=== PATIENT | female | born 1960 | race Caucasian/White ===

== ENCOUNTER 2017-10-02 07:35 | Day surgery (SDC) | payer OTHER ==
[2017-09-26 10:18] VITALS: BMI 32.3
[2017-10-02] MEDS ORDERED: DEXAMETHASONE SOD PHOSPHATE/PF 10 MG/ML SDV ONE (08:58)
[2017-10-02] MEDS ORDERED: MIDAZOLAM HCL 2 MG/2 ML SINGLE DOSE VIAL ONE (08:59)
[2017-10-02] MEDS ORDERED: ROPIVACAINE HCL 0.5% 30ML VIAL ONE (08:59)
[2017-10-02] MEDS ORDERED: BUPIVACAINE HCL/PF 2.5 MG/ML - 30 ML VIAL IJ ONE (09:05)
[2017-10-02] MEDS ORDERED: PROPOFOL 20 ML ONE ×3 (09:28)
[2017-10-02] MEDS ORDERED: DEXAMETHASONE SOD PHOSPHATE 4 MG/1 ML VIAL ONE (09:30)
[2017-10-02] MEDS ORDERED: KETOROLAC TROMETHAMINE 30 MG/1 ML VIAL ONE (09:30)
[2017-10-02] MEDS ORDERED: ceFAZolin SODIUM 1 GM VIAL ONE (09:30)
[2017-10-02] MEDS ORDERED: ONDANSETRON 4 MG/2 ML VIAL ONE (09:30)
[2017-10-02] MEDS ORDERED: oxyCODONE HCL 5 MG TABLET PO PRN ×2 (10:29)
[2017-10-02] MEDS ORDERED: ONDANSETRON 4 MG/2 ML VIAL IVPUSH PRN (10:29)
[2017-10-02] MEDS ORDERED: PROMETHAZINE HCL 25 MG/1 ML VIAL IVPUSH PRN (10:29)
[2017-10-02 10:53] VITALS: TEMP 95
[2017-10-02 11:17] VITALS: PULSE 80
[2017-10-02 12:11] VITALS: BP 108/76
--- NOTE | 2017-10-02 12:35 | OP ---
DATE OF OPERATION: 10/02/2017 PREOPERATIVE DIAGNOSIS: Left basal joint arthritis. POSTOPERATIVE DIAGNOSIS: Left basal joint arthritis. OPERATIVE PROCEDURE: 1. Left basal joint arthroplasty. 2. Left carpometacarpal joint tendon transfer. SURGEON: Dada Ochoa MD SHINGLES ROOFER HELPER: EL Lopez ANESTHESIA: Regional. COMPLICATIONS: None. ESTIMATED BLOOD LOSS: Minimal. INDICATIONS FOR PROCEDURE: The patient is a 57-year-old female with the above finding indicated for operative treatment. The risks, benefits, and alternatives were discussed with the patient at length. Proper informed consent was obtained. DESCRIPTION OF PROCEDURE: After proper identification of the patient and the correct operative site, the patient was brought to the operating room and placed supine on the operating table. Prominences were well padded. Sedation was given by the anesthesiologist. Regional anesthesia was also given. Left upper extremity was prepped and draped in the usual sterile fashion. Intravenous antibiotics were given. Time-out procedure was performed. Esmarch bandage used to exsanguinate the left upper extremity. Tourniquet inflated to 250 mmHg. Curvilinear Bynum incision was made over the basal joint. Incision was taken sharply through the skin with blunt and sharp dissection through subcutaneous tissues taking care to protect neurovascular structures. Thenar muscles were elevated off the dorsal radial aspect of the carpometacarpal joint. Capsulotomy was performed longitudinally. Severe arthrosis of the carpometacarpal joint was noted with significant effusion. The trapezium was then resected and removed from the joint. Suspensionplasty was then performed by using an Arthrex SwiveLock anchor inserted into the base of the 2nd metacarpal and the base of the thumb metacarpal with a FiberTape suture. This was done with appropriate tensioning and positioning and full range of motion was achieved after the suspensionplasty was performed. Capsule was then repaired, and 1st dorsal compartment tendon was transferred to the dorsal capsule for increased stability. Wound was repaired with 4-0 Vicryl and 4-0 Monocryl. Sterile dressings and splint were placed. Patient was reversed from anesthesia and brought to the recovery room in stable condition. She tolerated the procedure well. DADA OCHOA M.D. [id number]
--- NOTE | 2017-10-02 12:38 | OP ---
DATE OF OPERATION: 10/02/2017 ADDENDUM Constantine Borrego, the physicians teachers' assistant, was integral throughout the procedure as an teachers' assistant, and this procedure could not have been performed without a skilled operative teachers' assistant. ANGIE MUIR M.D. CORIN/[id number]
== END 2017-10-02 12:11 | disposition home or self-care (01) ==
LOC: FASU 07:35
PROVIDERS: ATTEND Orthopaedic Surgery Hand Surgery
PROC: 0RUT07Z Supplement Left Carpometacarpal Joint with Autologous Tissue Substitute, Open Approach (ICD-10-PCS; principal; 2017-10-02 09:46)
DX: M18.12 Unilateral primary osteoarthritis of first carpometacarpal joint, left hand (principal)
CPT/HCPCS: 82962

== ENCOUNTER 2019-04-09 09:55 | Inpatient (IN) | payer OTHER ==
[2019-04-09 10:38] LABS: BASO % 1.1 % (0-2.0); EOS % 1.5 % (0-4.5); HEMOGLOBIN 9.8 GM/dL (10.7-15.3); LYMPH % 42.4 % (8-40); MCH 20.1 pg (25.7-33.7); MCHC 30.5 g/dl (32.0-36.0); MEAN CELL VOLUME 65.8 fl (80-96); MONO % 5.7 % (3.8-10.2); NEUT % 49.3 % (42.8-82.8); PLATELET COUNT 314 K/MM3 (134-434); RBC 4.86 M/mm3 (3.60-5.2); RDW 20.5 % (11.6-15.6); WHITE BLOOD COUNT 5.9 K/mm3 (4.0-10.0)
--- NOTE | 2019-04-09 10:45 | PDOC ---
History of Present Illness - General Chief Complaint: Injury Stated Complaint: FALL Time Seen by Provider: 04/09/19 10:30 - History of Present Illness Initial Comments: 04/09/19 10:46 58 yo F PMH dizziness (for many years, seeing neurologist Dr. Funk, unclear etiology), HTN, non obstructive CAD, remote h/o PE, GERD, chronic constipation, diverticulitis, presenting after fall. Reports that she was opening the door to let a friend into the house when she had "tunnel over my eyesight" dizziness, fell, hit her head, LOC for less than minute. Identical to previous episodes of this dizziness. Reportedly neurologist has trialed her on zonisamide for several months, patient states that it has not helped. Complains of very mild dizziness, worsened by tracking finger from side to side, ongoing constipation, and mild LLQ pain unchanged from her normal. Specifically denies CP, SOB, diarrhea, fevers/chills, OVIEDO, N/V. Past History - Past Medical History Allergies/Adverse Reactions: Allergies Allergy/AdvReac Type Severity Reaction Status Date / Time levofloxacin [From Levaquin] Allergy Unknown Verified 03/15/18 10:06 seasonal Allergy Uncoded 03/15/18 10:06 Home Medications: Ambulatory Orders Atorvastatin Ca [Lipitor] 20 mg PO HS 06/15/15 Cholecalciferol (Vitamin D3) [Vitamin D3] 50,000 unit PO SA 06/15/15 Cyclobenzaprine HCl [Amrix] 10 mg PO DAILY 06/15/15 Duloxetine HCl 60 mg PO DAILY 06/15/15 Methimazole [Northyx] 5 mg PO SUWE 06/15/15 Mirabegron [Myrbetriq] 50 mg PO DAILY 06/15/15 Oxycodone HCl [Oxycontin] 30 mg PO BID 06/15/15 Pregabalin [Lyrica -] 225 mg PO BID 04/01/16 Cetirizine HCl [Zyrtec -] 10 mg PO DAILY 09/26/17 Dapagliflozin Propanediol [Farxiga] 5 mg PO DAILY 09/26/17 Losartan Potassium [Cozaar -] 25 mg PO DAILY 09/26/17 Metoprolol Succinate [Toprol XL -] 25 mg PO DAILY 09/26/17 Omeprazole 40 mg PO BID 09/26/17 metFORMIN HCL [Glucophage -] 1,000 mg PO HS 09/26/17 Nitroglycerin 0.4 mg SL ASDIR 03/15/18 clonazePAM [Klonopin -] 0.5 mg PO HS 03/15/18 Ferrous Sulfate [Feosol] 325 mg PO DAILY #30 tablet 03/18/18 Anemia: Yes (2011 r/t knee replacement) Asthma: No Cancer: No Cardiac Disorders: Yes (occasional palpitations) CVA: No COPD: No (SOB on excertion-pt states due to weight) CHF: No Dementia: No Diabetes: Yes GI Disorders: Yes (Esophageal surgery x2??? 09/17/17) Disorders: No HTN: Yes Hypercholesterolemia: Yes Liver Disease: No Seizures: No Thyroid Disease: Yes (HYPER) - Surgical History Abdominal Surgery: No Appendectomy: No Cardiac Surgery: No Cholecystectomy: No Lung Surgery: No Neurologic Surgery: No Orthopedic Surgery: Yes (Bilateral knee replacement) - Immunization History Immunization Up to Date: Yes - Psycho Social/Smoking Cessation Hx Smoking Status: No Smoking History: Never smoked Have you smoked in the past 12 months: No Number of Cigarettes Smoked Daily: 0 Information on smoking cessation initiated: No Hx Alcohol Use: No Drug/Substance Use Hx: No Substance Use Type: None Hx Substance Use Treatment: No Review of Systems - Review of Systems Able to Perform ROS?: Yes Constitutional: No: Chills, Fever HEENTM: No: Recent change in vision, Double Vision, Hearing Loss, Difficulty Swallowing Respiratory: No: Cough, Shortness of Breath Cardiac (ROS): No: Chest Pain, Edema, Irregular Heart Rate ABD/GI: No: Constipated, Diarrhea, Nausea, Vomiting Musculoskeletal: No: Back Pain, Muscle Weakness Neurological: No: Headache, Numbness, Tingling, Weakness *Physical Exam - Vital Signs Last Vital Signs Temp Pulse Resp BP Pulse Ox 98.5 F 82 18 127/84 100 04/09/19 10:08 04/09/19 10:08 04/09/19 10:08 04/09/19 10:08 04/09/19 10:08 - Physical Exam Comments: 04/09/19 10:51 Gen: well-developed, well-nourished, NAD Neuro: AAOX4, CN II-XII intact, FTN intact, EOMI, PERRLA, 5/5 strength, SILT, mild tremor HEENT: atraumatic, normocephalic, dry mucous membranes Neck: trachea midline, supple CV: regular rate, regular rhythm, no murmurs, rubs, or gallops Pulm: CTA b/l, no wheezing Abd: soft, non-distended, non-tender MSK: full ROM, intact pulses Extr: no edema, no deformities Skin: warm, dry Heart Score/ECG Review - History History: Moderately suspicious - Electrocardiogram EKG: Normal - Age Age: 45-65 - Risk Factors Risk Factors Heart Score: Yes Hx Hypercholesterolemia, Yes Hx Hypertension, Yes Hx Diabetes Based on the list above the patient has:: >/=3 risk factors or Hx atherosclerotic disease - Troponin Troponin: </= normal limit - Score Heart Score - Total: 4 ED Treatment Course - LABORATORY CBC & Chemistry Diagram: 04/09/19 10:19 04/09/19 10:19 Medical Decision Making - Medical Decision Making 04/09/19 10:58 Concern with head trauma and positive LOC, cardiac v neuro etiology. Furthermore , has never before had syncope like she did today. - CBC, CMP - EKG, trop - UA/UC - CT head non con - ctm 04/09/19 11:01 Hgb 9.8, CXR no acute pathology. 04/09/19 11:56 EKG normal sinus, no ischemic changes. 04/09/19 12:45 CT head no acute pathology. 04/09/19 13:45 CT neck no acute pathology. Will likely admit [facility] for first time syncope. Discharge - Discharge Information Problems reviewed: Yes Clinical Impression/Diagnosis: Syncope - Follow up/Referral Referrals: Seema Liao MD [Primary Care Provider] - - Patient Discharge Instructions - Post Discharge Activity
[2019-04-09] MEDS ORDERED: MECLIZINE HCL 25 MG TABLET (FP) PO ONE (11:04)
[2019-04-09 11:06] LABS: ALBUMIN 4.2 g/dl (3.4-5.0); BILIRUBIN,TOTAL 0.3 mg/dL (0.2-1); CALCIUM 9.3 mg/dL (8.5-10.1); CREATININE 0.7 mg/dL (0.55-1.3); POTASSIUM 4.3 mmol/L (3.5-5.1); TOT PROT 7.3 g/dl (6.4-8.2)
[2019-04-09 11:14] LABS: PH,URINE 5.5 (5.0-8.0); URINE APPEARANCE CLEAR; URINE BILIRUBIN NEGATIVE (NEGATIVE); URINE COLOR YELLOW; URINE GLUCOSE (UA) 3+ (NEGATIVE); URINE KETONE NEGATIVE (NEGATIVE); URINE LEUK ESTERASE NEGATIVE (NEGATIVE); URINE NITRITE NEGATIVE (NEGATIVE); URINE PROTEIN NEGATIVE (NEGATIVE); URINE UROBILINOGEN 0.2 mg/dL (0.2-1.0)
[2019-04-09] MEDS ORDERED: MECLIZINE HCL 25 MG TABLET (FP) ONE (11:20)
--- NOTE | 2019-04-09 12:05 | EKG ---
Test Reason : Blood Pressure : / mmHG Vent. Rate : 078 BPM Atrial Rate : 078 BPM P-R Int : 156 ms QRS Dur : 084 ms QT Int : 372 ms P-R-T Axes : 034 020 034 degrees QTc Int : 424 ms POOR DATA QUALITY, INTERPRETATION MAY BE ADVERSELY AFFECTED NORMAL SINUS RHYTHM NORMAL ECG WHEN COMPARED WITH ECG OF 15-MAR-2018 10:01, NO SIGNIFICANT CHANGE WAS FOUND Confirmed by JOSEE SALDIVAR, REI ([id number]) on 04/09/2019 12:04:26 PM Referred By: Confirmed By:REI TRIPP MD
[2019-04-09 12:16] LABS: ANISOCYTOSIS 1+; MACROCYTOSIS 0; PLATELET ESTIMATE NORMAL
--- NOTE | 2019-04-09 14:51 | PDOC ---
Documentation entered by Lc Hathaway SCRIBE, acting as scribe for Jaky House MD. Jaky House MD: This documentation has been prepared by the Rivas valentin Daniel, SCRIBE, under my direction and personally reviewed by me in its entirety. I confirm that the documentation accurately reflects all work, treatment, procedures, and medical decision making performed by me. Attending Attestation - Resident Resident Name: Dennis Quintanilla - ED Attending Attestation I have performed the following: I have examined & evaluated the patient, The case was reviewed & discussed with the resident, I agree w/resident's findings & plan, Exceptions are as noted - HPI HPI: 04/09/19 11:00 The patient is a 58 year old female with a past medical history of chronic dizziness, HTN, chronic constipation, PE, GERD, and diverticulitis here today for evaluation s/p fall. The patient reports that she was walking to her door when she felt sudden tunnel vision, palpitations, and lightheadedness followed by LOC for unknown period of time. She states that she fell, hit her head, and lost consciousness. Denies confusion afterwards, called 911. Denies injury from fall. At this time, she feels mildly lightheaded. Patient denies headache, focal weakness/numbness. Denies fever, chills. Denies chest pain, shortness of breath. Denies nausea, vomiting, diarrhea, abdominal pain. Denies LE edema, calf pain, recent travel or immobility. Allergies: levofloxacin PCP: Seema Liao Neurologist: Rena Funk - Physicial Exam PE: 04/09/19 11:00 GENERAL: Awake, alert, and fully oriented, in no acute distress HEAD: No signs of trauma EYES: PERRLA, EOMI, sclera anicteric, conjunctiva clear ENT: Oropharynx clear without exudates. Moist mucosa NECK: Normal ROM, supple, no lymphadenopathy, JVD, or masses BACK: No midline cervical, thoracic, lumbar ttp LUNGS: Breath sounds equal, clear to auscultation bilaterally. No wheezes, and no crackles HEART: Regular rate and rhythm, normal S1 and S2, no murmurs, rubs or gallops ABDOMEN: Soft, nontender, normoactive bowel sounds. No guarding, no rebound. No masses EXTREMITIES: Normal range of motion, no edema. No clubbing or cyanosis. No cords , erythema, or tenderness BACK: No midline spinal tenderness in cervical/thoracic/lumbar region NEUROLOGICAL: Normal speech, cranial nerves intact, negative pronator drift, 5/ 5 strength in all 4 extremities, normal sensation to light touch in all 4 extremities, normal cerebellar exam, normal gait, normal tone SKIN: Warm, Dry, normal turgor, no rashes or lesions noted. - Medical Decision Making 04/09/19 14:47 58-year-old female presents emergency department with a syncopal episode. Prodrome included lightheadedness, palpitations. Patient has no history of syncope. Exam within normal limits. Labs within normal limits. CT head negative. Cervical spine cleared by [place] C-spine rules. Concern for cardiac arrhythmia given lightheadedness and preceding palpitations. Plan for telemetry observation for further management. Heart Score/ECG Review #1 04/09/19 14:50 Twelve-lead EKG was performed and reviewed by me. Normal sinus rhythm, rate 78. Normal axis and intervals. No ST elevations or T wave inversions.
--- NOTE | 2019-04-09 14:51 | HP ---
Admitting History and Physical - Admission Chief Complaint: came in for syncopal episode History of Present Illness: The patient is a 58 year old female with a past medical history of chronic dizziness, HTN, DM,chronic constipation, PE, GERD, and diverticulitis here today for evaluation s/p fall. The patient reports that she was walking to her door when she felt sudden tunnel vision, palpitations, and lightheadedness followed by LOC for unknown period of time. She states that she fell, hit her head, and lost consciousness. Denies confusion afterwards, called 911. History Source: Patient, Family Member - Past Medical History Cardiovascular: Yes: CAD (non-obstructive), HTN, Hyperlipdemia, Other ( arrhythmia) Pulmonary: Yes: Pulmonary Embolus Gastrointestinal: Yes: GERD ...LMP: 02/08/11 Psych: Yes: Anxiety, Depression, Panic Endocrine: Yes: Diabetes Mellitus - Past Surgical History Past Surgical History: Yes: Hysterectomy, Joint Replacement (bilateral knees) - Smoking History Smoking history: Never smoked Have you smoked in the past 12 months: No Aproximately how many cigarettes per day: 0 - Alcohol/Substance Use Hx Alcohol Use: No History of Substance Use: reports: None - Social History ADL: Independent History of Recent Travel: No Home Medications - Allergies Allergies/Adverse Reactions: Allergies Allergy/AdvReac Type Severity Reaction Status Date / Time levofloxacin [From Levaquin] Allergy Unknown Verified 03/15/18 10:06 seasonal Allergy Uncoded 03/15/18 10:06 - Home Medications Home Medications: Ambulatory Orders Atorvastatin Ca [Lipitor] 20 mg PO HS 06/15/15 Cholecalciferol (Vitamin D3) [Vitamin D3] 50,000 unit PO SA 06/15/15 Cyclobenzaprine HCl [Amrix] 10 mg PO DAILY 06/15/15 Duloxetine HCl 60 mg PO DAILY 06/15/15 Methimazole [Northyx] 5 mg PO SUWE 06/15/15 Mirabegron [Myrbetriq] 50 mg PO DAILY 06/15/15 Oxycodone HCl [Oxycontin] 30 mg PO BID 06/15/15 Pregabalin [Lyrica -] 225 mg PO BID 04/01/16 Cetirizine HCl [Zyrtec -] 10 mg PO DAILY 09/26/17 Dapagliflozin Propanediol [Farxiga] 5 mg PO DAILY 09/26/17 Losartan Potassium [Cozaar -] 25 mg PO DAILY 09/26/17 Metoprolol Succinate [Toprol XL -] 25 mg PO DAILY 09/26/17 Omeprazole 40 mg PO BID 09/26/17 metFORMIN HCL [Glucophage -] 1,000 mg PO HS 09/26/17 Nitroglycerin 0.4 mg SL ASDIR 03/15/18 clonazePAM [Klonopin -] 0.5 mg PO HS 03/15/18 Ferrous Sulfate [Feosol] 325 mg PO DAILY #30 tablet 03/18/18 Review of Systems - Review of Systems Cardiovascular: reports: No Symptoms Respiratory: reports: No Symptoms Gastrointestinal: reports: No Symptoms Genitourinary: reports: No Symptoms Neurological: reports: Headache Physical Examination Vital Signs: Vital Signs Temperature 98.5 F 04/09/19 10:08 Pulse Rate 82 04/09/19 10:08 Respiratory Rate 18 04/09/19 10:08 Blood Pressure 127/84 04/09/19 10:08 O2 Sat by Pulse Oximetry (%) 100 04/09/19 10:08 Constitutional: Yes: Calm Neck: Yes: Trachea Midline Cardiovascular: Yes: Regular Rate and Rhythm, S1, S2 Respiratory: Yes: CTA Bilaterally Gastrointestinal: Yes: Normal Bowel Sounds, Soft Musculoskeletal: Yes: Other (right knee pain) Labs: CBC, BMP 04/09/19 10:19 04/09/19 10:19 Imaging - Results EKG: Report Reviewed (sinus rhythm) Problem List - Problems (1) Syncope Assessment/Plan: telemetry r/o arrthymia svts metoprolol echo cadiology eval carotid doppler Code(s): R55 - SYNCOPE AND COLLAPSE (2) Hyperlipidemia Assessment/Plan: atorvastatin Code(s): E78.5 - HYPERLIPIDEMIA, UNSPECIFIED Qualifiers: Hyperlipidemia type: unspecified Qualified Code(s): E78.5 - Hyperlipidemia , unspecified (3) Hyperthyroidism Assessment/Plan: methimazole tsh free t4 t3 Code(s): E05.90 - THYROTOXICOSIS, UNSP WITHOUT THYROTOXIC CRISIS OR STORM (4) Type 2 diabetes mellitus Assessment/Plan: sliding scale bgm achs hgba1c Code(s): E11.9 - TYPE 2 DIABETES MELLITUS WITHOUT COMPLICATIONS Qualifiers: Diabetes mellitus complication status: without complication Qualified Code( s): E11.9 - Type 2 diabetes mellitus without complications (5) Anemia Assessment/Plan: iron panel Code(s): D64.9 - ANEMIA, UNSPECIFIED Qualifiers: Anemia type: iron deficiency
[2019-04-09] MEDS ORDERED: MECLIZINE HCL 25 MG TABLET (FP) PO PRN (15:34)
[2019-04-09] MEDS ORDERED: clonazePAM 0.5 MG TABLET PO ONE (15:34)
[2019-04-09 16:45] VITALS: BMI 30.2
--- NOTE | 2019-04-09 17:07 | CON.CARD ---
Consult Consult Specialty:: cardiology Reason for Consultation:: ?syncope, palpitations - History of Present Illness Chief Complaint: Pt A&Ox3; no chest pain, dyspnea, or dizziness History of Present Illness: The patient is a 58 year old female (sb Wilde) with a past medical history of chronic dizziness, HTN, diastolic CHF, overweight, chronic constipation, PE, GERD, anxiety/depression (exacerbated by the of her a few months ago), anemia, hiatal hernia, and diverticulitis, here today for evaluation s/p fall. The patient reports that she was walking to answer a knock at her door this morning when she felt sudden tunnel vision, palpitations, and lightheadedness followed by LOC for unknown period of time. She states that she fell, hit her head, and lost consciousness. Denies confusion afterwards, called 911. Denies injury from fall. At this time, she feels mildly lightheaded. Patient denies headache, focal weakness/numbness. Denies fever, chills. Denies chest pain, shortness of breath. Denies nausea, vomiting, diarrhea, abdominal pain. Denies LE edema, calf pain, recent travel or immobility. Allergies: levofloxacin PCP: Seema Liao Web Weaver: Andria Neurologist: Rena Funk - History Source History Provided By: Patient, Family Member, Medical Record Limitations to Obtaining History: No Limitations - Past Medical History Cardio/Vascular: Yes: CAD (non-obstructive), HTN, Hyperlipdemia, Other ( arrhythmia) Pulmonary: Yes: Pulmonary Embolus Gastrointestinal: Yes: GERD Reproductive: Yes: Postmenopausal ...LMP: 02/08/11 ...: No Psych: Yes: Anxiety, Depression, Panic Endocrine: Yes: Diabetes Mellitus - Past Surgical History Past Surgical History: Yes: Hysterectomy, Joint Replacement (bilateral knees) - Alcohol/Substance Use Hx Alcohol Use: No History of Substance Use: reports: None - Smoking History Smoking history: Never smoked Have you smoked in the past 12 months: No Aproximately how many cigarettes per day: 0 - Social History ADL: Independent History of Recent Travel: No Home Medications - Allergies Allergies/Adverse Reactions: Allergies Allergy/AdvReac Type Severity Reaction Status Date / Time levofloxacin [From Levaquin] Allergy Unknown Verified 03/15/18 10:06 seasonal Allergy Uncoded 03/15/18 10:06 - Home Medications Home Medications: Ambulatory Orders Atorvastatin Ca [Lipitor] 20 mg PO HS 06/15/15 Cholecalciferol (Vitamin D3) [Vitamin D3] 50,000 unit PO SA 06/15/15 Cyclobenzaprine HCl [Amrix] 10 mg PO DAILY 06/15/15 Duloxetine HCl 60 mg PO DAILY 06/15/15 Methimazole [Northyx] 5 mg PO SUWE 06/15/15 Mirabegron [Myrbetriq] 50 mg PO DAILY 06/15/15 Oxycodone HCl [Oxycontin] 30 mg PO BID 06/15/15 Pregabalin [Lyrica -] 225 mg PO BID 04/01/16 Cetirizine HCl [Zyrtec -] 10 mg PO DAILY 09/26/17 Dapagliflozin Propanediol [Farxiga] 5 mg PO DAILY 09/26/17 Losartan Potassium [Cozaar -] 25 mg PO DAILY 09/26/17 Metoprolol Succinate [Toprol XL -] 25 mg PO DAILY 09/26/17 Omeprazole 40 mg PO BID 09/26/17 metFORMIN HCL [Glucophage -] 1,000 mg PO HS 09/26/17 Nitroglycerin 0.4 mg SL ASDIR 03/15/18 clonazePAM [Klonopin -] 0.5 mg PO HS 03/15/18 Ferrous Sulfate [Feosol] 325 mg PO DAILY #30 tablet 03/18/18 Family Medical History Family History: Denies Review of Systems - Review of Systems Constitutional: reports: Weakness Eyes: reports: No Symptoms HENT: reports: No Symptoms Neck: reports: No Symptoms Cardiovascular: reports: Chest Pain, Shortness of Breath Respiratory: reports: SOB Gastrointestinal: reports: Indigestion Genitourinary: reports: No Symptoms Breasts: reports: No Symptoms Reported Musculoskeletal: reports: Joint Pain (hit right knee when she fell), Muscle Weakness Integumentary: reports: No Symptoms Neurological: reports: No Symptoms Endocrine: reports: No Symptoms Hematology/Lymphatic: reports: No Symptoms Psychiatric: reports: Anxiety, Depression - Risk Factors Known Risk Factors: Yes: Age, Gender, Hypercholesterolemia, Hypertension, Physical Inactivity, Other (anxeity/depression) Vital Signs: Vital Signs Temperature 98.2 F 04/09/19 16:15 Pulse Rate 86 04/09/19 16:15 Respiratory Rate 18 04/09/19 16:15 Blood Pressure 121/75 04/09/19 16:15 O2 Sat by Pulse Oximetry (%) 100 04/09/19 15:00 Constitutional: Yes: Anxious Eyes: Yes: WNL HENT: Yes: WNL Neck: Yes: WNL Respiratory: Yes: WNL Gastrointestinal: Yes: Soft. No: Tenderness Renal/: No: Anuria Cardiovascular: Yes: WNL JVD: No Carotid Bruit: No PMI: Non-Displaced Heart Sounds: Yes: S1, S2 Musculoskeletal: Yes: Joint Stiffness, Muscle Weakness Extremities: Yes: WNL Edema: No Peripheral Pulses WNL: Yes Integumentary: Yes: WNL Neurological: Yes: Alert, Oriented, Weakness Psychiatric: Yes: Alert, Oriented, Other (anxiety/depression) - Other Data Labs, Other Data: CBC, BMP 04/09/19 10:19 04/09/19 10:19 Troponin, BNP 04/09/19 10: Troponin I < 0.02 Troponin, BNP 04/09/19 10:19 Troponin I < 0.02 Echo: Report Reviewed Ejection Fraction %: LVEF > or = 40 % Imaging - Results Chest X-ray: Image Reviewed EKG: Image Reviewed Other: Image Reviewed (telemetry: NSR; periods of sinus tachycardia) Problem List - Problems (1) Anxiety and depression Assessment/Plan: chronic; exacerbated by the of her earlier this year, wth resulting change in diet, decrease in exercise. Code(s): F41.9 - ANXIETY DISORDER, UNSPECIFIED; F32.9 - MAJOR DEPRESSIVE DISORDER, SINGLE EPISODE, UNSPECIFIED (2) Syncope Assessment/Plan: Avoid dehydration. Orthostatic vital signs. ECHO for LVEF, valve status. EKG: normal study. Stress MIBI 03/2018: no ischemia. TNI < 0.02 x 2. Carotid artery US: no significant stenosis. Addendum: Pt c/o chest pain today, and underwent treadmill stress test, which was markedly limited by exertional fatigue. For CT chest. Code(s): R55 - SYNCOPE AND COLLAPSE (3) Atypical chest pain Code(s): R07.89 - OTHER CHEST PAIN (4) Physical deconditioning Code(s): R53.81 - OTHER MALAISE
[2019-04-09] MEDS: INSULIN SLIDING SCALE (NOVOLOG) 1 VIAL SQ SCH ×2 (17:17→21:34)
--- NOTE | 2019-04-09 18:56 | CON.NEURO ---
Consult Consult Specialty:: NEUROLOGY-MARY JANE SALDIVAR - History of Present Illness History of Present Illness: The patient is a 58 year old female (sb Wilde) with a past medical history of chronic dizziness, HTN, diastolic CHF, overweight, chronic constipation, PE, GERD, anxiety/depression (exacerbated by the of her a few months ago), anemia, and diverticulitis, here today for evaluation s/p fall. The patient reports that she was walking to her door when she felt sudden tunnel vision, palpitations, and lightheadedness followed by LOC for unknown period of time. She states that she fell, hit her head, and lost consciousness. Denies confusion afterwards, called 911. Denies injury from fall. At this time, she feels mildly lightheaded.No confusion following event. Pt. being rx. by myself for depression/headaches. - Past Medical History Cardio/Vascular: Yes: CAD (non-obstructive), HTN, Hyperlipdemia, Other ( arrhythmia) Pulmonary: Yes: Pulmonary Embolus Gastrointestinal: Yes: GERD ...LMP: 02/08/11 ...: No Psych: Yes: Anxiety, Depression, Panic Endocrine: Yes: Diabetes Mellitus - Past Surgical History Past Surgical History: Yes: Hysterectomy, Joint Replacement (bilateral knees) - Alcohol/Substance Use Hx Alcohol Use: No History of Substance Use: reports: None - Smoking History Smoking history: Never smoked Have you smoked in the past 12 months: No Aproximately how many cigarettes per day: 0 - Social History ADL: Independent History of Recent Travel: No Home Medications - Allergies Allergies/Adverse Reactions: Allergies Allergy/AdvReac Type Severity Reaction Status Date / Time levofloxacin [From Levaquin] Allergy Unknown Verified 03/15/18 10:06 seasonal Allergy Uncoded 03/15/18 10:06 - Home Medications Home Medications: Ambulatory Orders Atorvastatin Ca [Lipitor] 20 mg PO HS 06/15/15 Cholecalciferol (Vitamin D3) [Vitamin D3] 50,000 unit PO SA 06/15/15 Cyclobenzaprine HCl [Amrix] 10 mg PO DAILY 06/15/15 Duloxetine HCl 60 mg PO DAILY 06/15/15 Methimazole [Northyx] 5 mg PO SUWE 06/15/15 Mirabegron [Myrbetriq] 50 mg PO DAILY 06/15/15 Oxycodone HCl [Oxycontin] 30 mg PO BID 06/15/15 Pregabalin [Lyrica -] 225 mg PO BID 04/01/16 Cetirizine HCl [Zyrtec -] 10 mg PO DAILY 09/26/17 Dapagliflozin Propanediol [Farxiga] 5 mg PO DAILY 09/26/17 Losartan Potassium [Cozaar -] 25 mg PO DAILY 09/26/17 Metoprolol Succinate [Toprol XL -] 25 mg PO DAILY 09/26/17 Omeprazole 40 mg PO BID 09/26/17 metFORMIN HCL [Glucophage -] 1,000 mg PO HS 09/26/17 Nitroglycerin 0.4 mg SL ASDIR 03/15/18 clonazePAM [Klonopin -] 0.5 mg PO HS 03/15/18 Ferrous Sulfate [Feosol] 325 mg PO DAILY #30 tablet 03/18/18 Physical Exam-Neuro Vital Signs: Vital Signs Temperature 98.0 F 04/09/19 18:00 Pulse Rate 82 04/09/19 18:00 Respiratory Rate 18 04/09/19 18:00 Blood Pressure 119/70 04/09/19 18:00 O2 Sat by Pulse Oximetry (%) 100 04/09/19 15:00 Labs: CBC, BMP 04/09/19 10:19 04/09/19 10:19 - Neuro Exam Level Of Consciousness: Yes: Alert, Oriented to Person, Oriented to Place, Oriented to Time Eyes: Yes: CORAZON Dominant Hand: Left Mini Mental Exam: Intact DTR's: 1+ Left Achilles, 1+ Right Achilles, 2+ Left Bicep, 2+ Right Bicep, 2+ Left Tricep, 2+ Right Tricep, 2+ Left Brachioradialis, 2+ Right Brachioradialis Motor Strength: 5/5: Left Arm, Right Arm, Left Leg, Right Leg Imaging - Results Cat Scan: Report Reviewed (No acute ischemic event) Assessment/Plan Pt. with syncope of cardiovascular origin, management as per cardiology,does not appear to be a neurologic event.Would cont.Duloxetine/Klonopin. Please call if needed. Thank you, Briana Funk MD
[2019-04-09] MEDS ORDERED: PREGABALIN 100 MG CAPSULE ONE (21:08)
[2019-04-09] MEDS ORDERED: PREGABALIN 25 MG CAPSULE ONE (21:08)
[2019-04-09] MEDS: oxyCODONE HCL 10 MG SUSTAINED ACTING TABLET PO SCH (21:35)
[2019-04-09] MEDS: clonazePAM 0.5 MG TABLET PO SCH (21:37)
[2019-04-09] MEDS: ATORVASTATIN CA 20 MG TABLET (FP) PO SCH (21:37)
[2019-04-09] MEDS: PREGABALIN PO SCH (21:37)
[2019-04-09] MEDS ORDERED: PREGABALIN 100 MG CAPSULE PO SCH (22:00)
[2019-04-10] MEDS: INSULIN SLIDING SCALE (NOVOLOG) 1 VIAL SQ SCH ×4 (06:13→21:35)
[2019-04-10 08:13] LABS: HEMATOCRIT 28.8 % (32.4-45.2); HEMOGLOBIN 9.4 GM/dL (10.7-15.3); MCH 21.6 pg (25.7-33.7); MCHC 32.7 g/dl (32.0-36.0); MEAN CELL VOLUME 66.2 fl (80-96); PLATELET COUNT 273 K/MM3 (134-434); RBC 4.35 M/mm3 (3.60-5.2); RDW 20.1 % (11.6-15.6); WHITE BLOOD COUNT 5.7 K/mm3 (4.0-10.0)
[2019-04-10 08:50] LABS: ALBUMIN 3.8 g/dl (3.4-5.0); ALK PHOS 83 U/L (45-117); ANION GAP 6 MMOL/L (8-16); BILIRUBIN,TOTAL 0.4 mg/dL (0.2-1); BLOOD UREA NITROGEN 7.3 mg/dL (7-18); CALCIUM 9.1 mg/dL (8.5-10.1); CHLORIDE 107 mmol/L (98-107); CHOLESTEROL 181 mg/dL (50-200); CO2 26 mmol/L (21-32); CREATININE 0.6 mg/dL (0.55-1.3); GLUCOSE,RANDOM 106 mg/dL (74-106); HDL CHOLESTEROL 55 mg/dL (40-60); LDL CHOLESTEROL (ONLY SJRH) 105 mg/dL (5-100); N-TERMINAL BNP 12.4 pg/ml (5-125); PHOSPHOROUS 4.2 mg/dL (2.5-4.9); POTASSIUM 4.2 mmol/L (3.5-5.1); SGOT/AST 11 U/L (15-37); SGPT/ALT 19 U/L (13-61); SODIUM 140 mmol/L (136-145); TOT PROT 6.7 g/dl (6.4-8.2); TRIGLYCERIDES 93 mg/dL (0-150)
[2019-04-10 09:24] LABS: ACTIVATED PTT 32.8 SECONDS (25.2-36.5)
[2019-04-10 09:25] LABS: INR 0.93 (0.83-1.09)
[2019-04-10] MEDS ORDERED: DULoxetine HCL 60 MG CAPSULE.DR PO SCH (10:00)
[2019-04-10] MEDS ORDERED: DULoxetine HCL 30 MG CAPSULE.DR PO ONE (10:35)
[2019-04-10] MEDS ORDERED: PREGABALIN 25 MG CAPSULE ONE ×2 (10:35→21:10)
[2019-04-10] MEDS ORDERED: PREGABALIN 100 MG CAPSULE ONE ×2 (10:35→21:09)
[2019-04-10] MEDS: PREGABALIN PO SCH ×2 (10:36→21:34)
[2019-04-10] MEDS: oxyCODONE HCL 10 MG SUSTAINED ACTING TABLET PO SCH ×2 (10:37→21:34)
[2019-04-10] MEDS: metoPROLOL SUCCINATE 25 MG TAB.SR.24H (FP) PO SCH (10:37)
[2019-04-10] MEDS: FERROUS SO4 325 MG TABLET (FP) PO SCH (10:37)
[2019-04-10] MEDS: LOSARTAN POTASSIUM 50 MG TABLET (FP) PO SCH (10:38)
--- NOTE | 2019-04-10 11:07 | PN ---
Progress Note, Physician Chief Complaint: patient seen and examined no dsitress no palipiations no chest pain - Current Medication List Current Medications: Active Medications Atorvastatin Calcium (Lipitor -) 20 mg PO HS [facility] Last Admin: 04/09/19 21:37 Dose: 20 mg Clonazepam (Klonopin -) 0.5 mg PO HS [facility] Last Admin: 04/09/19 21:37 Dose: 0.5 mg Duloxetine HCl (Cymbalta -) 60 mg PO DAILY [facility] Last Admin: 04/10/19 10:38 Dose: 60 mg Ferrous Sulfate (Feosol -) 325 mg PO DAILY [facility] Last Admin: 04/10/19 10:37 Dose: 325 mg Insulin Aspart (Novolog Vial Sliding Scale -) 1 vial SQ ACHS [facility]; Protocol Last Admin: 04/10/19 06:13 Dose: Not Given Losartan Potassium (Cozaar -) 50 mg PO DAILY [facility] Last Admin: 04/10/19 10:38 Dose: 50 mg Meclizine HCl (Antivert -) 25 mg PO Q8H PRN PRN Reason: VERTIGO Metoprolol Succinate (Toprol Xl -) 25 mg PO DAILY [facility] Last Admin: 04/10/19 10:37 Dose: 25 mg Oxycodone HCl (Oxycontin -) 30 mg PO BID [facility] Last Admin: 04/10/19 10:37 Dose: 30 mg Polyethylene Glycol (Miralax (For Daily Use) -) 17 gm PO DAILY [facility] Pregabalin 200 mg/ Pregabalin (25 mg) 225 mg PO BID [facility] Last Admin: 04/10/19 10:36 Dose: 225 mg - Objective Vital Signs: Vital Signs Temperature 97.6 F 04/10/19 05:41 Pulse Rate 74 04/10/19 05:41 Respiratory Rate 18 04/10/19 05:41 Blood Pressure 111/68 04/10/19 05:41 O2 Sat by Pulse Oximetry (%) 96 04/09/19 21:00 Constitutional: Yes: Calm Cardiovascular: Yes: Regular Rate and Rhythm, S1, S2 Respiratory: Yes: CTA Bilaterally Gastrointestinal: Yes: Normal Bowel Sounds, Soft Edema: No Neurological: Yes: Alert Labs: CBC, BMP 04/10/19 06:15 04/10/19 06:15 INR, PTT INR 0.93 (0.83-1.09) 04/10/19 06:15 Problem List - Problems (1) Syncope Assessment/Plan: telemetry r/o arrthymia svts metoprolol echo pending cadiology on board carotid doppler no stenosis ct head no acute pathology knee xray no fracture appreciate neurology consult Code(s): R55 - SYNCOPE AND COLLAPSE (2) Hyperlipidemia Assessment/Plan: atorvastatin Code(s): E78.5 - HYPERLIPIDEMIA, UNSPECIFIED Qualifiers: Hyperlipidemia type: unspecified Qualified Code(s): E78.5 - Hyperlipidemia , unspecified (3) Hyperthyroidism Assessment/Plan: methimazole tsh free t4 t3 Code(s): E05.90 - THYROTOXICOSIS, UNSP WITHOUT THYROTOXIC CRISIS OR STORM (4) Type 2 diabetes mellitus Assessment/Plan: sliding scale bgm achs hgba1c 7.1 Code(s): E11.9 - TYPE 2 DIABETES MELLITUS WITHOUT COMPLICATIONS Qualifiers: Diabetes mellitus complication status: without complication Qualified Code( s): E11.9 - Type 2 diabetes mellitus without complications (5) Anemia Assessment/Plan: iron panel pending Code(s): D64.9 - ANEMIA, UNSPECIFIED Qualifiers: Anemia type: iron deficiency
--- NOTE | 2019-04-10 11:23 | ECHO ---
Name: CHANEL GARCIA Exam:Adult Echocardiogram Study Date: 04/10/2019 09:34 AM Age: 58 yrs Reason For Study: ef Height: 66 in Weight: 188 lb BSA: 1.9 m2 MMode/2D Measurements & Calculations IVSd: 1.3 cm Ao root diam: 3.0 cm LVIDd: 3.3 cm LA dimension: 3.2 cm LVIDs: 2.5 cm LVPWd: 1.1 cm EDV(Teich): 45.0 ml LVOT diam: 2.0 cm ESV(Teich): 22.0 ml LAV (MOD-bp): 65.9 ml Doppler Measurements & Calculations MV E max robbie: 49.5 cm/sec Ao V2 max: 107.2 cm/sec MV A max robbie: 84.4 cm/sec Ao max P.6 mmHg MV E/A: 0.59 MV dec time: 0.14 sec SHERRIE(V,D): 3.3 cm2 LV V1 max P.3 mmHg PA V2 max: 119.4 cm/sec LV V1 max: 115.4 cm/sec PA max P.7 mmHg Med Peak E' Robbie: 4.4 cm/sec PI Vmax: 120.8 cm/sec Med E/e': 11.4 Lat Peak E' Robbie: 8.6 cm/sec Lat E/e': 5.8 Left Ventricle There is mild concentric left ventricular hypertrophy. Left ventricular systolic function is normal. Ejection Fraction = 55-60%. The transmitral spectral Doppler flow pattern is suggestive of impaired LV relaxat ion. Right Ventricle The right ventricle is normal in size and function. Atria The left atrium is mildly dilated. Right atrial size is normal. Mitral Valve The mitral valve is normal in structure and function. There is no mitral valve stenosis. There is mil d mitral regurgitation. Tricuspid Valve The tricuspid valve is normal in structure and function. There is mild tricuspid regurgitation. Right ventricular systolic pressure is normal. Aortic Valve The aortic valve is normal in structure and function. No hemodynamically significant valvular aortic stenosis. No aortic regurgitation is present. Pulmonic Valve The pulmonic valve is not well seen, but is grossly normal. There is no pulmonic valvular stenosis. T race to mild pulmonic valvular regurgitation. Great Vessels The aortic root is normal size. Pericardium/Pleura There is no pericardial effusion. Interpretation Summary There is mild concentric left ventricular hypertrophy. Left ventricular systolic function is normal. Ejection Fraction = 55-60%. The transmitral spectral Doppler flow pattern is suggestive of impaired LV relaxation. The left atrium is mildly dilated. There is mild mitral regurgitation. There is mild tricuspid regurgitation. There is no pericardial effusion. MD Paris *Lisa 04/10/2019 11:22 AM
[2019-04-10] MEDS: POLYETHYLENE GLYCOL 3350 119 GM BTL PO SCH ×2 (11:40→12:16)
--- NOTE | 2019-04-10 12:03 | PN ---
Progress Note (short form) - Note Progress Note: patient complained of chest pain ekg done NSR spoke with cardiology plan to order treadmill stress test Problem List - Problems (1) Syncope Code(s): R55 - SYNCOPE AND COLLAPSE (2) Hyperlipidemia Code(s): E78.5 - HYPERLIPIDEMIA, UNSPECIFIED Qualifiers: Hyperlipidemia type: unspecified Qualified Code(s): E78.5 - Hyperlipidemia , unspecified (3) Hyperthyroidism Code(s): E05.90 - THYROTOXICOSIS, UNSP WITHOUT THYROTOXIC CRISIS OR STORM (4) Type 2 diabetes mellitus Code(s): E11.9 - TYPE 2 DIABETES MELLITUS WITHOUT COMPLICATIONS Qualifiers: Diabetes mellitus complication status: without complication Qualified Code( s): E11.9 - Type 2 diabetes mellitus without complications (5) Anemia Code(s): D64.9 - ANEMIA, UNSPECIFIED Qualifiers: Anemia type: iron deficiency
[2019-04-10] MEDS: DOCUSATE SODIUM 100 MG CAPSULE (FP) PO SCH (12:39)
--- NOTE | 2019-04-10 14:19 | EKG ---
Test Reason : Blood Pressure : / mmHG Vent. Rate : 073 BPM Atrial Rate : 073 BPM P-R Int : 146 ms QRS Dur : 084 ms QT Int : 390 ms P-R-T Axes : 013 000 034 degrees QTc Int : 429 ms NORMAL SINUS RHYTHM NORMAL ECG WHEN COMPARED WITH ECG OF 09-APR-2019 10:02, NO SIGNIFICANT CHANGE WAS FOUND Confirmed by BREN CURTIS MD ([id number]) on 04/10/2019 2:18:56 PM Referred By: TOAN SAWYER DR Confirmed By:BREN CURTIS MD
[2019-04-10] MEDS ORDERED: NITROGLYCERIN SUBLINGUAL 1/200 0.3 MG BTL SL ONE (15:15)
--- NOTE | 2019-04-10 15:33 | TRE ---
Protocol Name : CAROLINE Max Work Load (METS*10) : 28 Time In Exercise Phase : 00:01:00 Max. Systolic BP : 121 mmHg Max Diastolic BP : 80 mmHg Max Heart Rate : 136 BPM Max Predicted Heart Rate : 162 BPM Attending Physician : DR. CURTIS Reason For Termination : Fatigue Reason for Test : CHEST PAIN Stress Protocol : CAROLINE Rest HR : 109 BPM PeakEx METs : 2.8 METS Recovery ECG Response (OLD) : Diagnosis : The patient completed 1:00 of a standard Caroline Protocl achieving a work load of 2.8 METS. The resting heart rate of 108bpm nikos to a peak of 136bpm, 83% of age predicted maximum. The resting blood pressure of 119/78 nikos to a peak of 121/80mmHg. The exam was stopped due to fatigue. The resting ECG showed NSR at 80bpm with RBBB.There were no arrhythmias and no diagnostic ischemic ST changes. IMP: 1. Poor exercise capacity. 2. No ischemic ST changes at the achieved submaximal heart rate. 3. Blunted blood pressure response to exercise. 4. Overall, nondiagnostic ETT due to failure to achieve target heart rate and low workload. Confirmed by BREN CURTIS MD ([id number]) on 04/10/2019 3:33:21 PM
[2019-04-10] MEDS: clonazePAM 0.5 MG TABLET PO SCH (21:34)
[2019-04-10] MEDS: ATORVASTATIN CA 20 MG TABLET (FP) PO SCH (21:35)
[2019-04-11] MEDS: INSULIN SLIDING SCALE (NOVOLOG) 1 VIAL SQ SCH ×4 (06:22→21:31)
--- NOTE | 2019-04-11 08:28 | PN ---
Progress Note, Physician Chief Complaint: Syncope History of Present Illness: Previous notes and events reviewed awake and alert NAD Treadmill Stress Test done yesterday denies chest pain or palpitations complain of dizziness while ambulating no acute events overnight - Current Medication List Current Medications: Active Medications Atorvastatin Calcium (Lipitor -) 20 mg PO HS [facility] Last Admin: 04/10/19 21:35 Dose: 20 mg Clonazepam (Klonopin -) 0.5 mg PO HS [facility] Last Admin: 04/10/19 21:34 Dose: 0.5 mg Docusate Sodium (Colace -) 300 mg PO DAILY [facility] Last Admin: 04/10/19 12:39 Dose: 300 mg Duloxetine HCl (Cymbalta -) 60 mg PO DAILY [facility] Ferrous Sulfate (Feosol -) 325 mg PO DAILY [facility] Last Admin: 04/10/19 10:37 Dose: 325 mg Insulin Aspart (Novolog Vial Sliding Scale -) 1 vial SQ [facility]; Protocol Last Admin: 04/11/19 06:22 Dose: Not Given Losartan Potassium (Cozaar -) 50 mg PO DAILY [facility] Last Admin: 04/10/19 10:38 Dose: 50 mg Meclizine HCl (Antivert -) 25 mg PO Q8H PRN PRN Reason: VERTIGO Metoprolol Succinate (Toprol Xl -) 25 mg PO DAILY [facility] Last Admin: 04/10/19 10:37 Dose: 25 mg Oxycodone HCl (Oxycontin -) 30 mg PO BID [facility] Last Admin: 04/10/19 21:34 Dose: 30 mg Pregabalin 200 mg/ Pregabalin (25 mg) 225 mg PO BID [facility] Last Admin: 04/10/19 21:34 Dose: 225 mg - Objective Vital Signs: Vital Signs Temperature 97.7 F 04/11/19 05:00 Pulse Rate 80 04/11/19 05:00 Respiratory Rate 18 04/11/19 05:00 Blood Pressure 86/50 L 04/11/19 05:00 O2 Sat by Pulse Oximetry (%) 95 04/10/19 21:00 Constitutional: Yes: No Distress, Calm Eyes: Yes: Conjunctiva Clear HENT: Yes: Atraumatic Cardiovascular: Yes: Tachycardia Respiratory: Yes: Regular, CTA Bilaterally Gastrointestinal: Yes: Normal Bowel Sounds, Soft, Tenderness (llq) Musculoskeletal: Yes: WNL Extremities: Yes: WNL Edema: No Neurological: Yes: Alert, Oriented Psychiatric: Yes: Alert, Oriented Labs: CBC, BMP 04/10/19 06:15 04/10/19 06:15 INR, PTT INR 0.93 (0.83-1.09) 04/10/19 06:15 Microbiology 04/09/19 10:11 Urine - Urine Clean Catch Urine Culture - Final NO GROWTH OBTAINED - ....Imaging Other: Report Reviewed Problem List - Problems (1) Syncope Assessment/Plan: -Cardiology on board -Neurology on board -Tele monitoring -Treadmill Stress test shows poor exercise capacity, no ischemic ST changes , blunted BP response to exercise, non diagnostic ETT due to failure to achieve target heart rate and low workload -Echocardiogram EF 55-60%, transmitral spectral Doppler Flow pattern suggestive of impaired LV relaxation, LA mildly dilated, mild mitral regurg, mild tricuspid regurg -Carotid US shows no doppler evidence of a high grade carotid artery stenosis identified -Fall precautions Code(s): R55 - SYNCOPE AND COLLAPSE (2) Anemia Assessment/Plan: -Hg 9.4 -Ferrous Sulfate -monitor Hg -transfuse for Hg <8.0 Code(s): D64.9 - ANEMIA, UNSPECIFIED Qualifiers: Anemia type: iron deficiency (3) Chronic constipation Assessment/Plan: -Colace -will add Miralax daily Code(s): K59.09 - OTHER CONSTIPATION (4) Hyperlipidemia Assessment/Plan: -Atorvastatin Code(s): E78.5 - HYPERLIPIDEMIA, UNSPECIFIED Qualifiers: Hyperlipidemia type: unspecified Qualified Code(s): E78.5 - Hyperlipidemia , unspecified (5) Hypertension Assessment/Plan: -Losartan, Metoprolol Code(s): I10 - ESSENTIAL (PRIMARY) HYPERTENSION Qualifiers: Hypertension type: essential hypertension Qualified Code(s): I10 - Essential (primary) hypertension (6) Type 2 diabetes mellitus Assessment/Plan: -BGM ACHS -ISS -A1c 7.1% -diabetic diet Code(s): E11.9 - TYPE 2 DIABETES MELLITUS WITHOUT COMPLICATIONS Qualifiers: Diabetes mellitus complication status: without complication Qualified Code( s): E11.9 - Type 2 diabetes mellitus without complications Assessment/Plan see problem list SCDs
[2019-04-11] MEDS ORDERED: PREGABALIN 25 MG CAPSULE ONE ×2 (09:37→21:18)
[2019-04-11] MEDS ORDERED: PREGABALIN 100 MG CAPSULE ONE ×2 (09:37→21:18)
[2019-04-11] MEDS: DOCUSATE SODIUM 100 MG CAPSULE (FP) PO SCH (09:42)
[2019-04-11] MEDS: oxyCODONE HCL 10 MG SUSTAINED ACTING TABLET PO SCH ×2 (09:45→21:29)
[2019-04-11] MEDS: FERROUS SO4 325 MG TABLET (FP) PO SCH (09:47)
[2019-04-11] MEDS: PREGABALIN PO SCH ×2 (09:47→21:30)
[2019-04-11] MEDS: DULoxetine HCL 30 MG CAPSULE.DR PO SCH (09:48)
[2019-04-11] MEDS: metoPROLOL SUCCINATE 25 MG TAB.SR.24H (FP) PO SCH (09:49)
[2019-04-11] MEDS: LOSARTAN POTASSIUM 50 MG TABLET (FP) PO SCH (09:49)
[2019-04-11] MEDS: POLYETHYLENE GLYCOL 3350 119 GM BTL PO SCH (11:11)
--- NOTE | 2019-04-11 12:16 | PN ---
Progress Note, Physician Chief Complaint: Coverage for Dr. Ayers Not in distress History of Present Illness: Patient was seen and examined. Awake and alert. Chart was reviewed Denies chest pain, SOB or palpitations - Current Medication List Current Medications: Active Medications Atorvastatin Calcium (Lipitor -) 20 mg PO HS [facility] Last Admin: 04/10/19 21:35 Dose: 20 mg Clonazepam (Klonopin -) 0.5 mg PO HS [facility] Last Admin: 04/10/19 21:34 Dose: 0.5 mg Docusate Sodium (Colace -) 300 mg PO DAILY [facility] Last Admin: 04/11/19 09:42 Dose: 300 mg Duloxetine HCl (Cymbalta -) 60 mg PO DAILY [facility] Last Admin: 04/11/19 09:48 Dose: 60 mg Ferrous Sulfate (Feosol -) 325 mg PO DAILY [facility] Last Admin: 04/11/19 09:47 Dose: 325 mg Insulin Aspart (Novolog Vial Sliding Scale -) 1 vial SQ [facility]; Protocol Last Admin: 04/11/19 11:13 Dose: Not Given Losartan Potassium (Cozaar -) 50 mg PO DAILY [facility] Last Admin: 04/11/19 09:49 Dose: 50 mg Meclizine HCl (Antivert -) 25 mg PO Q8H PRN PRN Reason: VERTIGO Metoprolol Succinate (Toprol Xl -) 25 mg PO DAILY [facility] Last Admin: 04/11/19 09:49 Dose: 25 mg Oxycodone HCl (Oxycontin -) 30 mg PO BID [facility] Last Admin: 04/11/19 09:45 Dose: 30 mg Polyethylene Glycol (Miralax (For Daily Use) -) 17 gm PO DAILY [facility] Last Admin: 04/11/19 11:11 Dose: 17 gm Pregabalin 200 mg/ Pregabalin (25 mg) 225 mg PO BID [facility] Last Admin: 04/11/19 09:47 Dose: 225 mg - Objective Vital Signs: Vital Signs Temperature 98.3 F 04/11/19 09:00 Pulse Rate 96 H 04/11/19 09:00 Respiratory Rate 18 04/11/19 09:00 Blood Pressure 103/69 04/11/19 09:00 O2 Sat by Pulse Oximetry (%) 100 04/11/19 09:00 Eyes: Yes: PERRL HENT: Yes: Atraumatic Neck: Yes: Supple Cardiovascular: Yes: Regular Rate and Rhythm, S1, S2 Respiratory: Yes: CTA Bilaterally Gastrointestinal: Yes: Normal Bowel Sounds, Soft. No: Tenderness Edema: No Additional Findings/Remarks: - Review of Systems Constitutional: denies: Chills, Fever Cardiovascular: denies Shortness of Breath. denies: Chest Pain, Palpitations Respiratory: denies Cough, SOB, SOB on Exertion. denies: Hemoptysis, Orthopnea , PND Gastrointestinal: denies: Abdominal Pain, Constipation, Diarrhea, Melena, Nausea , Rectal Bleeding, Vomiting Genitourinary: denies: Dysuria, Hematuria Musculoskeletal: denies: Back Pain, Joint Pain Neurological: denies: Dizziness, Headache, Seizure, Syncope Labs: CBC, BMP 04/10/19 06:15 04/10/19 06:15 INR, PTT INR 0.93 (0.83-1.09) 04/10/19 06:15 Problem List - Problems (1) Anxiety and depression Code(s): F41.9 - ANXIETY DISORDER, UNSPECIFIED; F32.9 - MAJOR DEPRESSIVE DISORDER, SINGLE EPISODE, UNSPECIFIED (2) Syncope Code(s): R55 - SYNCOPE AND COLLAPSE (3) Anemia Code(s): D64.9 - ANEMIA, UNSPECIFIED Qualifiers: Anemia type: iron deficiency (4) Atypical chest pain Code(s): R07.89 - OTHER CHEST PAIN (5) GERD (gastroesophageal reflux disease) Code(s): K21.9 - GASTRO-ESOPHAGEAL REFLUX DISEASE WITHOUT ESOPHAGITIS Qualifiers: Esophagitis presence: without esophagitis Qualified Code(s): K21.9 - Gastro -esophageal reflux disease without esophagitis (6) Hyperlipidemia Code(s): E78.5 - HYPERLIPIDEMIA, UNSPECIFIED Qualifiers: Hyperlipidemia type: unspecified Qualified Code(s): E78.5 - Hyperlipidemia , unspecified (7) Hypertension Code(s): I10 - ESSENTIAL (PRIMARY) HYPERTENSION Qualifiers: Hypertension type: essential hypertension Qualified Code(s): I10 - Essential (primary) hypertension (8) Type 2 diabetes mellitus Code(s): E11.9 - TYPE 2 DIABETES MELLITUS WITHOUT COMPLICATIONS Qualifiers: Diabetes mellitus complication status: without complication Qualified Code( s): E11.9 - Type 2 diabetes mellitus without complications Assessment/Plan 1. Syncope ? etiology undetermined ? vagal 2. Atypical chest pain 3. Anxiety 4. HTN 5. Hypercholesterolemia 6. Type 2 DM PLAN: 1. Cardiac testing reports noted and appears unremarkable (reviewed Dr. Ayers's note) 2. Continue Metoprolol ER 25 mg QD and Losartan 50 mg QD 3. Continue Atorvastatin 20 mg QHS 4. May consider heart monitoring as outpatient Discharge planning and follow up with Dr. Yash Ayers as outpatient [place] MD
[2019-04-11] MEDS: clonazePAM 0.5 MG TABLET PO SCH (21:30)
[2019-04-11] MEDS: ATORVASTATIN CA 20 MG TABLET (FP) PO SCH (21:30)
[2019-04-12] MEDS: INSULIN SLIDING SCALE (NOVOLOG) 1 VIAL SQ SCH ×2 (06:03→11:36)
[2019-04-12 06:08] LABS: HEMOGLOBIN 9.6 GM/dL (10.7-15.3); MCH 21.5 pg (25.7-33.7); MEAN CELL VOLUME 67.1 fl (80-96); MEAN PLT VOLUME 8.8 fl (7.5-11.1); PLATELET COUNT 290 K/MM3 (134-434); RBC 4.47 M/mm3 (3.60-5.2); RDW 20.4 % (11.6-15.6); WHITE BLOOD COUNT 5.5 K/mm3 (4.0-10.0)
[2019-04-12 07:33] LABS: ALBUMIN 3.7 g/dl (3.4-5.0); BILIRUBIN,TOTAL 0.5 mg/dL (0.2-1); CALCIUM 9.1 mg/dL (8.5-10.1); CREATININE 0.5 mg/dL (0.55-1.3); POTASSIUM 4.6 mmol/L (3.5-5.1); TOT PROT 6.4 g/dl (6.4-8.2)
[2019-04-12] MEDS ORDERED: PREGABALIN 100 MG CAPSULE ONE (09:55)
[2019-04-12] MEDS ORDERED: PREGABALIN 25 MG CAPSULE ONE (09:55)
--- NOTE | 2019-04-12 09:58 | PN ---
Progress Note, Physician Chief Complaint: Coverage for Dr. Ayers Not in distress History of Present Illness: Patient was seen and examined. Awake and alert. Chart was reviewed Denies chest pain, SOB or palpitations - Current Medication List Current Medications: Active Medications Atorvastatin Calcium (Lipitor -) 20 mg PO HS [facility] Last Admin: 04/11/19 21:30 Dose: 20 mg Clonazepam (Klonopin -) 0.5 mg PO HS [facility] Last Admin: 04/11/19 21:30 Dose: 0.5 mg Docusate Sodium (Colace -) 300 mg PO DAILY [facility] Last Admin: 04/11/19 09:42 Dose: 300 mg Duloxetine HCl (Cymbalta -) 60 mg PO DAILY [facility] Last Admin: 04/11/19 09:48 Dose: 60 mg Ferrous Sulfate (Feosol -) 325 mg PO DAILY [facility] Last Admin: 04/11/19 09:47 Dose: 325 mg Insulin Aspart (Novolog Vial Sliding Scale -) 1 vial SQ [facility]; Protocol Last Admin: 04/12/19 06:03 Dose: Not Given Losartan Potassium (Cozaar -) 50 mg PO DAILY [facility] Last Admin: 04/11/19 09:49 Dose: 50 mg Meclizine HCl (Antivert -) 25 mg PO Q8H PRN PRN Reason: VERTIGO Metoprolol Succinate (Toprol Xl -) 25 mg PO DAILY [facility] Last Admin: 04/11/19 09:49 Dose: 25 mg Oxycodone HCl (Oxycontin -) 30 mg PO BID [facility] Last Admin: 04/11/19 21:29 Dose: 30 mg Polyethylene Glycol (Miralax (For Daily Use) -) 17 gm PO DAILY [facility] Last Admin: 04/11/19 11:11 Dose: 17 gm Pregabalin 200 mg/ Pregabalin (25 mg) 225 mg PO BID [facility] Last Admin: 04/11/19 21:30 Dose: 225 mg - Objective Vital Signs: Vital Signs Temperature 98.3 F 04/12/19 06:00 Pulse Rate 79 04/12/19 06:00 Respiratory Rate 18 04/12/19 06:00 Blood Pressure 104/64 04/12/19 06:00 O2 Sat by Pulse Oximetry (%) 97 04/11/19 20:29 Eyes: Yes: PERRL HENT: Yes: Atraumatic Neck: Yes: Supple Cardiovascular: Yes: Regular Rate and Rhythm, S1, S2 Respiratory: Yes: CTA Bilaterally Gastrointestinal: Yes: Normal Bowel Sounds, Soft. No: Tenderness Edema: No Additional Findings/Remarks: - Review of Systems Constitutional: denies: Chills, Fever Cardiovascular: denies Shortness of Breath. denies: Chest Pain, Palpitations Respiratory: denies Cough, SOB, SOB on Exertion. denies: Hemoptysis, Orthopnea , PND Gastrointestinal: denies: Abdominal Pain, Constipation, Diarrhea, Melena, Nausea , Rectal Bleeding, Vomiting Genitourinary: denies: Dysuria, Hematuria Musculoskeletal: denies: Back Pain, Joint Pain Neurological: denies: Dizziness, Headache, Seizure, Syncope Labs: CBC, BMP 04/12/19 05:38 04/12/19 05:38 INR, PTT INR 0.93 (0.83-1.09) 04/10/19 06:15 Problem List - Problems (1) Anxiety and depression Code(s): F41.9 - ANXIETY DISORDER, UNSPECIFIED; F32.9 - MAJOR DEPRESSIVE DISORDER, SINGLE EPISODE, UNSPECIFIED (2) Syncope Code(s): R55 - SYNCOPE AND COLLAPSE (3) Anemia Code(s): D64.9 - ANEMIA, UNSPECIFIED Qualifiers: Anemia type: iron deficiency (4) Atypical chest pain Code(s): R07.89 - OTHER CHEST PAIN (5) GERD (gastroesophageal reflux disease) Code(s): K21.9 - GASTRO-ESOPHAGEAL REFLUX DISEASE WITHOUT ESOPHAGITIS Qualifiers: Esophagitis presence: without esophagitis Qualified Code(s): K21.9 - Gastro -esophageal reflux disease without esophagitis (6) Hyperlipidemia Code(s): E78.5 - HYPERLIPIDEMIA, UNSPECIFIED Qualifiers: Hyperlipidemia type: unspecified Qualified Code(s): E78.5 - Hyperlipidemia , unspecified (7) Hypertension Code(s): I10 - ESSENTIAL (PRIMARY) HYPERTENSION Qualifiers: Hypertension type: essential hypertension Qualified Code(s): I10 - Essential (primary) hypertension (8) Type 2 diabetes mellitus Code(s): E11.9 - TYPE 2 DIABETES MELLITUS WITHOUT COMPLICATIONS Qualifiers: Diabetes mellitus complication status: without complication Qualified Code( s): E11.9 - Type 2 diabetes mellitus without complications Assessment/Plan 1. Syncope ? etiology undetermined ? vagal 2. Atypical chest pain 3. Anxiety 4. HTN 5. Hypercholesterolemia 6. Type 2 DM PLAN: 1. Continue Metoprolol ER 25 mg QD and Losartan 50 mg QD 2. Continue Atorvastatin 20 mg QHS 3. May consider heart monitoring as outpatient Discharge planning Follow up with Dr. Ayers as outpatient [place] MD
[2019-04-12] MEDS: PREGABALIN PO SCH (10:01)
[2019-04-12] MEDS: DOCUSATE SODIUM 100 MG CAPSULE (FP) PO SCH (10:01)
[2019-04-12] MEDS: oxyCODONE HCL 10 MG SUSTAINED ACTING TABLET PO SCH (10:02)
[2019-04-12] MEDS: POLYETHYLENE GLYCOL 3350 119 GM BTL PO SCH (10:03)
[2019-04-12] MEDS: metoPROLOL SUCCINATE 25 MG TAB.SR.24H (FP) PO SCH (10:03)
[2019-04-12] MEDS: LOSARTAN POTASSIUM 50 MG TABLET (FP) PO SCH (10:03)
[2019-04-12] MEDS: DULoxetine HCL 30 MG CAPSULE.DR PO SCH (10:03)
[2019-04-12] MEDS: FERROUS SO4 325 MG TABLET (FP) PO SCH (10:03)
[2019-04-12 10:16] VITALS: BP 119/56; PULSE 91; TEMP 97.3
--- NOTE | 2019-04-12 11:44 | DS ---
Physical Examination Vital Signs: Vital Signs Temperature 97.3 F L 04/12/19 10:15 Pulse Rate 91 H 04/12/19 10:15 Respiratory Rate 18 04/12/19 10:15 Blood Pressure 119/56 L 04/12/19 10:15 O2 Sat by Pulse Oximetry (%) 100 04/12/19 09:00 Constitutional: Yes: No Distress Cardiovascular: Yes: Regular Rate and Rhythm Respiratory: Yes: WNL Gastrointestinal: Yes: WNL Renal/: Yes: WNL Musculoskeletal: Yes: WNL Extremities: Yes: WNL Edema: No Peripheral Pulses WNL: Yes Neurological: Yes: Pre-Existing Deficit Psychiatric: Yes: Other Labs: CBC, BMP 04/12/19 05:38 04/12/19 05:38 Discharge Summary Problems reviewed: Yes Reason For Visit: SYNCOPE Current Active Problems Anxiety and depression (Acute) Syncope (Acute) Procedures: Principal: STRESS TEST Other Procedures: LABSFOR SYNCOPE WORKUP Hospital Course: SYNCOPE WORKUP NO ACUTE FINDINGS Plan of Treatment: MECLIZINE TREATMENT FOR 4 WEEKS Goals: F/ WITH YOUR PMD Condition: Good - Instructions Diet, Activity, Other Instructions: LOW SALT DIET ADA SEE YOUR DOCTOR IN 1 WEEK Referrals: Seema Liao MD [Primary Care Provider] - Disposition: HOME - Home Medications Comprehensive Discharge Medication List: Ambulatory Orders Atorvastatin Ca [Lipitor] 20 mg PO HS 06/15/15 Cholecalciferol (Vitamin D3) [Vitamin D3] 50,000 unit PO SA 06/15/15 Cyclobenzaprine HCl [Amrix] 10 mg PO DAILY 06/15/15 Duloxetine HCl 60 mg PO DAILY 06/15/15 Methimazole [Northyx] 5 mg PO SUWE 06/15/15 Mirabegron [Myrbetriq] 50 mg PO DAILY 06/15/15 Oxycodone HCl [Oxycontin] 30 mg PO BID 06/15/15 Pregabalin [Lyrica -] 225 mg PO BID 04/01/16 Cetirizine HCl [Zyrtec -] 10 mg PO DAILY 09/26/17 Dapagliflozin Propanediol [Farxiga] 5 mg PO DAILY 09/26/17 Losartan Potassium [Cozaar -] 25 mg PO DAILY 09/26/17 Metoprolol Succinate [Toprol XL -] 25 mg PO DAILY 04/19/18 Omeprazole 40 mg PO BID 09/26/17 metFORMIN HCL [Glucophage -] 1,000 mg PO HS 09/26/17 Nitroglycerin 0.4 mg SL ASDIR 03/15/18 clonazePAM [Klonopin -] 0.5 mg PO HS 03/15/18 Ferrous Sulfate [Feosol] 325 mg PO DAILY #30 tablet 03/18/18 Atorvastatin Ca [Lipitor] 20 mg PO HS tablet 04/12/19 Docusate Sodium [Colace -] 300 mg PO DAILY capsule 04/12/19 Duloxetine HCl [Cymbalta -] 60 mg PO DAILY capsule. 04/12/19 Ferrous Sulfate [Feosol] 325 mg PO DAILY ud 04/12/19 Insulin Sliding Scale [Novolog Vial Sliding Scale -] 1 vial SQ ACHS units 04/12 Losartan Potassium [Cozaar -] 50 mg PO DAILY tablet 04/12/19 Meclizine HCl [Antivert -] 25 mg PO Q8H #60 tablet 04/12/19 Metoprolol Succinate [Toprol XL -] 25 mg PO DAILY tab.sr.24h 04/12/19 Polyethylene Glycol 3350 [Miralax 119 gm Btl -] 17 gm PO DAILY bottle 04/12/19 Pregabalin [Lyrica -] 225 mg PO BID capsule MDD 2 04/12/19 clonazePAM [Klonopin -] 0.5 mg PO HS tablet MDD 1 04/12/19 Prescription Drug Monitoring Program (I-STOP) results: I-STOP not reviewed
== END 2019-04-12 13:53 | disposition home or self-care (01) | DRG 312 ==
LOC: JER 09:55 → JERBED 14:20 → OBSVTOIN 14:30 → J4S 15:54
PROVIDERS: ADMIT Student in an Organized Health Care Education/Training Program; ATTEND Student in an Organized Health Care Education/Training Program
DX: R55 Syncope and collapse (principal); I50.32 Chronic diastolic (congestive) heart failure; I11.0 Hypertensive heart disease with heart failure; K21.9 Gastro-esophageal reflux disease without esophagitis; I25.10 Atherosclerotic heart disease of native coronary artery without angina pectoris; Z86.711 Personal history of pulmonary embolism; K59.09 Other constipation; E11.9 Type 2 diabetes mellitus without complications; Z79.84 Long term (current) use of oral hypoglycemic drugs; E78.5 Hyperlipidemia, unspecified; E05.90 Thyrotoxicosis, unspecified without thyrotoxic crisis or storm; D64.9 Anemia, unspecified; F41.8 Other specified anxiety disorders; E66.3 Overweight; K44.9 Diaphragmatic hernia without obstruction or gangrene; R07.89 Other chest pain; Z68.30 Body mass index [BMI] 30.0-30.9, adult
CPT/HCPCS: 36415; 70450-TC; 71045-TC-FY; 71275-TC; 72125-TC; 73560-TC-RT-FY; 80053; 80061; 81003; 82550; 82962; 83036; 83540; 83550; 83721; 83735; 83880; 84100; 84439; 84443; 84481; 84484; 85025; 85027; 85379; 85610; 85730; 87086; 87522; 93005; 93010; 93017; 93018; 93306-TC; 93880-TC; 99283-25; G0378

== ENCOUNTER 2019-08-01 11:25 | Inpatient (IN) | payer OTHER ==
--- NOTE | 2019-08-01 12:16 | PDOC ---
History of Present Illness - General Chief Complaint: Rectal Bleed Stated Complaint: BLOOD IN STOOL History Source: Patient Exam Limitations: No Limitations - History of Present Illness Initial Comments: 59 year old female with a past medical history of chronic dizziness, HTN, DM, chronic constipation, PE, GERD, and diverticulitis presents to the emergency department with 1x day of rectal bleeding. Per the patient, she states she had some pain when she was defecating this morning and had bright red blood on the tissue and scants amount on the stool. The patient provided imaging during the history taking which was consistent with bright red blood as described on the toilet paper and on top of the stool. Per the patient, she had a tearing sensation during her defecation this morning. In addition, the patient has new onset of suprapubic pain that is consistent with her previous UTI episodes. Denies the following: fevers, chills, SOB, chest pain, nausea, vomiting, dysuria , hematuria, and leg pain/swelling. Allergies: Levofloxacin Past History - Past Medical History Allergies/Adverse Reactions: Allergies Allergy/AdvReac Type Severity Reaction Status Date / Time levofloxacin [From Levaquin] Allergy Unknown Verified 08/01/19 11:34 seasonal Allergy Uncoded 08/01/19 11:34 Home Medications: Ambulatory Orders Cholecalciferol (Vitamin D3) [Vitamin D3] 50,000 unit PO SA 06/15/15 Cyclobenzaprine HCl [Amrix] 10 mg PO DAILY 06/15/15 Mirabegron [Myrbetriq] 50 mg PO DAILY 06/15/15 Oxycodone HCl [Oxycontin] 30 mg PO BID 06/15/15 Cetirizine HCl [Zyrtec -] 10 mg PO DAILY 09/26/17 Dapagliflozin Propanediol [Farxiga] 5 mg PO DAILY 09/26/17 Losartan Potassium [Cozaar -] 25 mg PO DAILY 09/26/17 metFORMIN HCL [Glucophage -] 1,000 mg PO HS 09/26/17 Nitroglycerin 0.4 mg SL ASDIR 03/15/18 Atorvastatin Ca [Lipitor] 20 mg PO HS tablet 04/12/19 Insulin Sliding Scale [Novolog Vial Sliding Scale -] 1 vial SQ ACHS units 04/12 Metoprolol Succinate [Toprol XL -] 25 mg PO DAILY tab.sr.24h 04/12/19 Lorazepam [Ativan] 1 mg PO HS 08/01/19 Metformin HCl [Glucophage] 500 mg PO DAILY 08/01/19 Vilazodone Hydrochloride [Viibryd -] 20 mg PO DAILY 08/01/19 Pregabalin [Lyrica -] 225 mg PO BID 08/02/19 Albuterol 2.5/Ipratropium 0.5 [Duoneb -] 1 amp NEB RQID amp 08/03/19 Atorvastatin Ca [Lipitor] 20 mg PO HS tablet 08/03/19 Pantoprazole Sodium [Protonix] 40 mg PO BID #60 tablet. 08/03/19 Anemia: Yes Asthma: No Cancer: No Cardiac Disorders: Yes (occasional palpitations) CVA: No COPD: No (SOB on excertion-pt states due to weight) CHF: No Dementia: No Diabetes: Yes GI Disorders: Yes (GERD) Disorders: No HTN: Yes Hypercholesterolemia: Yes Liver Disease: Yes (fatty liver) Seizures: No Thyroid Disease: Yes (HYPER) - Surgical History Abdominal Surgery: No Appendectomy: No Cardiac Surgery: No Cholecystectomy: No Lung Surgery: No Neurologic Surgery: No Orthopedic Surgery: Yes (Bilateral knee replacement) - Immunization History Immunization Up to Date: Yes - Psycho Social/Smoking Cessation Hx Smoking Status: No Smoking History: Never smoked Have you smoked in the past 12 months: No Number of Cigarettes Smoked Daily: 0 Hx Alcohol Use: No Drug/Substance Use Hx: No Substance Use Type: None Hx Substance Use Treatment: No Review of Systems - Review of Systems Able to Perform ROS?: Yes Is the patient limited Slovak proficient: No Constitutional: No: Chills, Diaphoresis, Fever, Weakness HEENTM: No: Eye Pain, Ear Pain, Nose Pain, Throat Pain, Mouth Pain Respiratory: No: Cough, Shortness of Breath, Hemoptysis Cardiac (ROS): No: Chest Pain, Lightheadedness, Palpitations, Chest Tightness ABD/GI: No: Constipated, Diarrhea, Nausea, Rectal Bleeding, Vomiting, Tarry Stools : No: Burning, Dysuria, Hematuria Musculoskeletal: No: Back Pain, Joint Pain, Neck Pain Integumentary: No: Bruising, Erythema, Rash Neurological: No: Headache, Numbness, Tingling, Tremors Psychiatric: No: Change in Appetite Endocrine: No: Unexplained Weight Loss Hematologic/Lymphatic: No: Anemia *Physical Exam - Vital Signs Last Vital Signs Temp Pulse Resp BP Pulse Ox 98.1 F 78 16 115/67 99 08/01/19 11:35 08/01/19 11:35 08/01/19 11:35 08/01/19 11:35 08/01/19 11:35 - Physical Exam General Appearance: Yes: Nourished, Appropriately Dressed. No: Apparent Distress, Intoxicated HEENT: positive: EOMI, [place], Normal Voice, Symmetrical, Pharynx Normal, Hearing Grossly Normal. negative: Pale Conjunctivae, Scleral Icterus (R), Scleral Icterus (L), Muffled/Hoarse voice, Pharyngeal Erythema, Tonsillar Exudate, Tonsillar Erythema, Nasal Congestion, Rhinorrhea, Sinus Tenderness, Excessive drooling Neck: positive: Trachea midline, Supple. negative: Tender, Lymphadenopathy (R) , Lymphadenopathy (L), Tender lateral, Tender midline Respiratory/Chest: positive: Lungs Clear, Normal Breath Sounds. negative: Chest Tender, Respiratory Distress, Accessory Muscle Use, Crackles, Rales, Rhonchi, Stridor, Wheezing Cardiovascular: positive: Regular Rhythm, Regular Rate, S1, S2. negative: Systolic Murmur Gastrointestinal/Abdominal: positive: Normal Bowel Sounds, Tender (suprapubic tenderness), Flat, Soft Rectal Exam: positive: normal rectal tone, heme positive stool. negative: decreased tone, hemorrhoids (no internal or external) Musculoskeletal: positive: Normal Inspection. negative: CVA Tenderness, Vertebral Tenderness Extremity: positive: Normal Capillary Refill, Normal Inspection, Normal Range of Motion. negative: Tender, Swelling, Calf Tenderness Integumentary: positive: Normal Color, Dry, Warm Neurologic: positive: Fully Oriented, Alert, Normal Mood/Affect ED Treatment Course - LABORATORY CBC & Chemistry Diagram: 08/03/19 07:36 08/03/19 07:36 Medical Decision Making - Medical Decision Making 59 year old female with a past medical history of chronic dizziness, HTN, DM, chronic constipation, PE, GERD, and diverticulitis presents to the emergency department with 1x day of rectal bleeding. Initial vitals: Initial Vital Signs Temp Pulse Resp BP Pulse Ox 98.1 F 78 16 115/67 99 08/01/19 11:35 08/01/19 11:35 08/01/19 11:35 08/01/19 11:35 08/01/19 11:35 Work up: patient presents to the emergency department with bright red blood per rectum consistent with LGIB. ddx: colonic cancer vs diverticulosis vs internal vs external hemorrhoids vs colitis Laboratory Tests 08/01/19 08/01/19 08/01/19 13:15 13:15 13:15 WBC 4.8 RBC 4.57 Hgb 9.0 L Hct 29.4 L MCV 64.2 L MCH 19.7 L MCHC 30.6 L RDW 21.1 H Plt Count 323 MPV 9.0 Absolute Neuts (auto) 2.3 Neutrophils % 47.7 Lymphocytes % 41.5 H Monocytes % 6.9 Eosinophils % 2.9 D Basophils % 1.0 Nucleated RBC % 0 Hypochromia 2+ Platelet Estimate Normal Platelet Comment Present Polychromasia 1+ Poikilocytosis 1+ Anisocytosis 1+ Microcytosis 1+ Macrocytosis 0 Spherocytes 1+ Tear Drop Cells 2+ Ovalocytes 1+ Stomatocytes 1+ [place] Cells 1+ Acanthocytes (Spur) 1+ Sodium 143 Potassium 4.5 Chloride 110 H Carbon Dioxide 29 Anion Gap 4 L BUN 4.6 L Creatinine 0.5 L Est GFR (CKD-EPI)AfAm 122.78 Est GFR (CKD-EPI)NonAf 105.94 Random Glucose 114 H Calcium 9.6 Total Bilirubin 0.2 AST 21 ALT 27 Alkaline Phosphatase 79 Total Protein 6.6 Albumin 3.8 Urine Color Urine Appearance Urine pH Ur Specific [place] Urine Protein Urine Glucose (UA) Urine Ketones Urine Blood Urine Nitrite Urine Bilirubin Urine Urobilinogen Ur Leukocyte Esterase Stool Occult Blood Trace 08/01/19 08/01/19 13:15 16:35 WBC 5.6 RBC 4.15 Hgb 8.2 L Hct 26.9 L MCV 64.8 L MCH 19.8 L MCHC 30.6 L RDW 21.4 H Plt Count 283 MPV 8.6 Absolute Neuts (auto) Neutrophils % Lymphocytes % Monocytes % Eosinophils % Basophils % Nucleated RBC % Hypochromia Platelet Estimate Platelet Comment Polychromasia Poikilocytosis Anisocytosis Microcytosis Macrocytosis Spherocytes Tear Drop Cells Ovalocytes Stomatocytes [place] Cells Acanthocytes (Spur) Sodium Potassium Chloride Carbon Dioxide Anion Gap BUN Creatinine Est GFR (CKD-EPI)AfAm Est GFR (CKD-EPI)NonAf Random Glucose Calcium Total Bilirubin AST ALT Alkaline Phosphatase Total Protein Albumin Urine Color Yellow Urine Appearance Clear Urine pH 6.5 Ur Specific [place] 1.017 Urine Protein Negative Urine Glucose (UA) 3+ H Urine Ketones Negative Urine Blood Negative Urine Nitrite Negative Urine Bilirubin Negative Urine Urobilinogen 0.2 Ur Leukocyte Esterase Negative Stool Occult Blood patient has trace blood in stool occult test. initial hemoglobin 9.0 with repeat showing 8.2 after 1 L bolus of fluids. Likely this is not secondary to hemodilution. Patient CTAP is negative for acute process Patient will need to be admitted for LGIB with drop in hemoglobin. Dispo: Admit Discharge - Discharge Information Problems reviewed: Yes Clinical Impression/Diagnosis: LGI bleed - Follow up/Referral - Patient Discharge Instructions - Post Discharge Activity
[2019-08-01] MEDS ORDERED: SODIUM CHLORIDE 1,000 ML IV STA (12:37)
[2019-08-01] MEDS ORDERED: ACETAMINOPHEN 1000 MG/100 ML VIAL (NON FORMULARY) IVPB ONE (12:37)
[2019-08-01] MEDS ORDERED: ACETAMINOPHEN INJECTION 100 ML IVPB ONE (13:05)
--- NOTE | 2019-08-01 13:42 | PDOC ---
Documentation entered by Daniel Salmon SCRIBE, acting as scribe for Ming Joyce MD. Ming Joyce MD: This documentation has been prepared by the Viky valentin Angel, SCRIBE, under my direction and personally reviewed by me in its entirety. I confirm that the documentation accurately reflects all work, treatment, procedures, and medical decision making performed by me. Attending Attestation - Resident Resident Name: Irvin Bueno - ED Attending Attestation I have performed the following: I have examined & evaluated the patient, The case was reviewed & discussed with the resident, I agree w/resident's findings & plan, Exceptions are as noted - HPI HPI: 08/01/19 12:41 The patient is a 59 year old female with a significant past medical history of chronic dizziness, diabetes, HTN, HLD, chronic constipation, GERD, fibromyalgia and diverticulitis who presents to the ED with one episode of rectal bleeding this morning. Patient states this morning while on the toilet, she was straining , experiencing a tearing sensation with bright red blood in the stool and on toilet paper. Patient states to have abdominal pain at baseline but is now experiencing suprapubic pain which is consistent with her previous UTIs. The patient denies chest pain, shortness of breath, headache and dizziness. Denies fever, chills, cough, nausea, vomiting, diarrhea and constipation. Denies dysuria, frequency, urgency. Allergies: NKDA 08/01/19 13:39 - Physicial Exam PE: 08/01/19 13:40 Patient is awake and alert, obese, in no significant distress normocephalic and atraumatic PERRLA, EOMI, conjunctiva are pink CTA RRR Abdomen nondistended, minimally- soft, tender within the suprapubic region, no guarding or rebound, no hernias - Medical Decision Making 08/01/19 13:41 Patient is a 59-year-old female with multiple comorbidities who presents with a singular episode of rectal bleeding and suprapubic abdominal pain. Will obtain CBC/CMP/UA/urine culture. Will obtain CT of abdomen pelvis with p.o. contrast to rule out diverticulitis. Will rule out UTI. Patient's bleeding is likely related to hemorrhoidal or fissure pathology related . Will reassess.
[2019-08-01 13:44] LABS: PH,URINE 6.5 (5.0-8.0); URINE APPEARANCE CLEAR; URINE BILIRUBIN NEGATIVE (NEGATIVE); URINE COLOR YELLOW; URINE GLUCOSE (UA) 3+ (NEGATIVE); URINE KETONE NEGATIVE (NEGATIVE); URINE LEUK ESTERASE NEGATIVE (NEGATIVE); URINE NITRITE NEGATIVE (NEGATIVE); URINE PROTEIN NEGATIVE (NEGATIVE); URINE UROBILINOGEN 0.2 mg/dL (0.2-1.0)
[2019-08-01 13:48] LABS: EOS % 2.9 % (0-4.5); HEMATOCRIT 29.4 % (32.4-45.2); LYMPH % 41.5 % (8-40); MCHC 30.6 g/dl (32.0-36.0); MEAN CELL VOLUME 64.2 fl (80-96); MONO % 6.9 % (3.8-10.2); NEUT % 47.7 % (42.8-82.8); PLATELET COUNT 323 K/MM3 (134-434); RBC 4.57 M/mm3 (3.60-5.2); RDW 21.1 % (11.6-15.6); WHITE BLOOD COUNT 4.8 K/mm3 (4.0-10.0)
[2019-08-01 13:56] LABS: MCH 19.7 pg (25.7-33.7)
[2019-08-01 13:57] LABS: ALBUMIN 3.8 g/dl (3.4-5.0); BILIRUBIN,TOTAL 0.2 mg/dL (0.2-1); BLOOD UREA NITROGEN 4.6 mg/dL (7-18); CALCIUM 9.6 mg/dL (8.5-10.1); CREATININE 0.5 mg/dL (0.55-1.3); POTASSIUM 4.5 mmol/L (3.5-5.1); TOT PROT 6.6 g/dl (6.4-8.2)
[2019-08-01 14:32] LABS: ANISOCYTOSIS 1+; MACROCYTOSIS 0; OVALOCYTE 1+; PLATELET ESTIMATE NORMAL; TEAR DROP CELLS 2+
[2019-08-01 16:41] LABS: HEMATOCRIT 26.9 % (32.4-45.2); HEMOGLOBIN 8.2 GM/dL (10.7-15.3); MCH 19.8 pg (25.7-33.7); MCHC 30.6 g/dl (32.0-36.0); MEAN CELL VOLUME 64.8 fl (80-96); MEAN PLT VOLUME 8.6 fl (7.5-11.1); PLATELET COUNT 283 K/MM3 (134-434); RBC 4.15 M/mm3 (3.60-5.2); RDW 21.4 % (11.6-15.6); WHITE BLOOD COUNT 5.6 K/mm3 (4.0-10.0)
[2019-08-01] MEDS ORDERED: PREGABALIN 100 MG CAPSULE PO ONE (20:37)
[2019-08-01] MEDS ORDERED: morphine CARPU-JECT 2 MG/1 ML DISP.SYRIN IVPUSH ONE (20:43)
[2019-08-01] MEDS ORDERED: PREGABALIN 25 MG CAPSULE ONE (20:48)
[2019-08-01] MEDS ORDERED: MORPHINE SULFATE 2 MG/ML VIAL ONE (20:49)
[2019-08-01] MEDS ORDERED: PREGABALIN 100 MG CAPSULE ONE (20:49)
[2019-08-01] MEDS ORDERED: PANTOPRAZOLE SODIUM 40 MG VIAL IVPUSH ONE (21:55)
--- NOTE | 2019-08-01 21:59 | HP ---
CHIEF COMPLAINT: hematochezia PCP:Dr. rené Liao HISTORY OF PRESENT ILLNESS: 59 YO F PMH of HTN, DM, GERD, diverticulosis, constipation, Arthritis, hyperthyroid, dysphagia, fibromyalgia presents to ED for bright red blood per rectum. Pt states that she went to bathroom this afternoon, noted bright red blood on toilet paper with blood streaks in stool. pt states she had rectal pain and periumbilical pain. she states she still has the abdominal pain. Pt also states that she has had nausea since this am but denies vomit. she states that she noted blood streaks in stool 1 month ago and did not follow it up. she states her last colonoscopy was 3 years ago and noted polyps and is due for a repeat in 2 years. she follows her PCP for anemia and was told she should follow up with GI and has not yet done so. Pt denies use of NSAIDs and alcohol. Pt states that after some meals she gets RUQ pain. ER course was notable for: (1)CT abdomen/ Pelvis (2)Acetaminophen (3)IV NS 1 L Recent Travel: recent flight to [facility] 2 weeks ago PAST MEDICAL HISTORY: see HPI PAST SURGICAL HISTORY: thyroid nodule knee replacements 2008, 2011 hammer toe hysterectomy L hand surgery Social History: Smoking:denies Alcohol:denies Drugs: denies Allergies levofloxacin [From Levaquin] Allergy (Unknown, Verified 08/01/19 11:34) seasonal Allergy (Uncoded 08/01/19 11:34) HOME MEDICATIONS: Home Medications Medication Instructions Recorded Cholecalciferol (Vitamin D3) 50,000 unit PO SA 06/15/15 [Vitamin D3] Cyclobenzaprine HCl [Amrix] 10 mg PO DAILY 06/15/15 Mirabegron [Myrbetriq] 50 mg PO DAILY 06/15/15 Oxycodone HCl [Oxycontin] 30 mg PO BID 06/15/15 Cetirizine HCl [Zyrtec -] 10 mg PO DAILY 09/26/17 Dapagliflozin Propanediol [Farxiga] 5 mg PO DAILY 09/26/17 Losartan Potassium [Cozaar -] 25 mg PO DAILY 09/26/17 Omeprazole 40 mg PO BID 09/26/17 metFORMIN HCL [Glucophage -] 1,000 mg PO HS 09/26/17 Nitroglycerin 0.4 mg SL ASDIR 03/15/18 Atorvastatin Ca [Lipitor] 20 mg PO HS tablet 04/12/19 Insulin Sliding Scale [Novolog 1 vial SQ ACHS units 04/12/19 Vial Sliding Scale -] Metoprolol Succinate [Toprol XL -] 25 mg PO DAILY tab.sr.24h 04/12/19 Lorazepam [Ativan] 1 mg PO HS 08/01/19 Metformin HCl [Glucophage] 500 mg PO DAILY 08/01/19 Vilazodone Hydrochloride [Viibryd] 20 mg PO DAILY 08/01/19 REVIEW OF SYSTEMS CONSTITUTIONAL: Absent: fever, chills, diaphoresis, generalized weakness, malaise, loss of appetite, weight change HEENT: Absent: rhinorrhea, nasal congestion, throat pain, throat swelling, difficulty swallowing, mouth swelling, ear pain, eye pain, visual changes CARDIOVASCULAR: Absent: chest pain, syncope, palpitations, irregular heart rate, lightheadedness , peripheral edema RESPIRATORY: PRESENT: Shortness of breath Absent: cough, dyspnea with exertion, orthopnea, wheezing, stridor, hemoptysis GASTROINTESTINAL: Present: abdominal pain, nausea, hematochezia Absent: abdominal distension, vomiting, diarrhea, constipation, melena GENITOURINARY: Present:dysuria Absent: frequency, urgency, hesitancy, hematuria, flank pain, genital pain MUSCULOSKELETAL: Present: joint pain Absent: myalgia, joint swelling, back pain, neck pain SKIN: Absent: rash, itching, pallor HEMATOLOGIC/IMMUNOLOGIC: Absent: easy bleeding, easy bruising, lymphadenopathy, frequent infections ENDOCRINE: Absent: unexplained weight gain, unexplained weight loss, heat intolerance, cold intolerance NEUROLOGIC: Absent: headache, focal weakness or paresthesias, dizziness, unsteady gait, seizure, mental status changes, bladder or bowel incontinence PHYSICAL EXAMINATION Vital Signs - 24 hr 08/01/19 11:35 Temperature 98.1 F Pulse Rate 78 Respiratory 16 Rate Blood Pressure 115/67 O2 Sat by Pulse 99 Oximetry (%) GENERAL: Awake, alert, and fully oriented, in no acute distress. HEAD: Normal with no signs of trauma. EYES: Pupils equal, round and reactive to light, extraocular movements intact EARS, NOSE, THROAT: oropharynx clear without exudates. Moist mucous membranes. NECK: Normal range of motion, supple without lymphadenopathy,+ hepatojugular LUNGS: Breath sounds decreased at L base. clear to auscultation bilaterally. No accessory muscle use. HEART: Regular rate and rhythm, normal S1 and S2 without murmur, rub or gallop. ABDOMEN: Soft, diffuse tenderness, RUQ tenderness. not distended, normoactive bowel sounds, no guarding, no rebound MUSCULOSKELETAL: No CVA tenderness. UPPER EXTREMITIES: 2+ pulses, warm, well-perfused. No cyanosis. No clubbing. No peripheral edema. LOWER EXTREMITIES: 2+ pulses, warm, well-perfused. No peripheral edema. NEUROLOGICAL: Cranial nerves II-XII intact. Normal speech. Normal gait. L hand weakness PSYCHIATRIC: Cooperative. Good eye contact. Appropriate mood and affect. SKIN: Warm, dry, normal turgor, no rashes or lesions noted, normal capillary refill. Laboratory Last Values WBC 5.6 K/mm3 (4.0-10.0) 08/01/19 16:35 RBC 4.15 M/mm3 (3.60-5.2) 08/01/19 16:35 Hgb 8.2 GM/dL (10.7-15.3) L 08/01/19 16:35 Hct 26.9 % (32.4-45.2) L 08/01/19 16:35 MCV 64.8 fl (80-96) L 08/01/19 16:35 MCH 19.8 pg (25.7-33.7) L 08/01/19 16:35 MCHC 30.6 g/dl (32.0-36.0) L 08/01/19 16:35 RDW 21.4 % (11.6-15.6) H 08/01/19 16:35 Plt Count 283 K/MM3 (134-434) 08/01/19 16:35 MPV 8.6 fl (7.5-11.1) 08/01/19 16:35 Absolute Neuts (auto) 2.3 K/mm3 (1.5-8.0) 08/01/19 13:15 Neutrophils % 47.7 % (42.8-82.8) 08/01/19 13:15 Lymphocytes % 41.5 % (8-40) H 08/01/19 13:15 Monocytes % 6.9 % (3.8-10.2) 08/01/19 13:15 Eosinophils % 2.9 % (0-4.5) D 08/01/19 13:15 Basophils % 1.0 % (0-2.0) 08/01/19 13:15 Nucleated RBC % 0 % (0-0) 08/01/19 13:15 Hypochromia 2+ 08/01/19 13:15 Platelet Estimate Normal 08/01/19 13:15 Platelet Comment Present 08/01/19 13:15 Polychromasia 1+ 08/01/19 13:15 Poikilocytosis 1+ 08/01/19 13:15 Anisocytosis 1+ 08/01/19 13:15 Microcytosis 1+ 08/01/19 13:15 Macrocytosis 0 08/01/19 13:15 Spherocytes 1+ 08/01/19 13:15 Tear Drop Cells 2+ 08/01/19 13:15 Ovalocytes 1+ 08/01/19 13:15 Stomatocytes 1+ 08/01/19 13:15 [place] Cells 1+ 08/01/19 13:15 Acanthocytes (Spur) 1+ 08/01/19 13:15 Sodium 143 mmol/L (136-145) 08/01/19 13:15 Potassium 4.5 mmol/L (3.5-5.1) 08/01/19 13:15 Chloride 110 mmol/L (98-107) H 08/01/19 13:15 Carbon Dioxide 29 mmol/L (21-32) 08/01/19 13:15 Anion Gap 4 MMOL/L (8-16) L 08/01/19 13:15 BUN 4.6 mg/dL (7-18) L 08/01/19 13:15 Creatinine 0.5 mg/dL (0.55-1.3) L 08/01/19 13:15 Est GFR (CKD-EPI)AfAm 122.78 08/01/19 13:15 Est GFR (CKD-EPI)NonAf 105.94 08/01/19 13:15 Random Glucose 114 mg/dL (74-106) H 08/01/19 13:15 Calcium 9.6 mg/dL (8.5-10.1) 08/01/19 13:15 Total Bilirubin 0.2 mg/dL (0.2-1) 08/01/19 13:15 AST 21 U/L (15-37) 08/01/19 13:15 ALT 27 U/L (13-61) 08/01/19 13:15 Alkaline Phosphatase 79 U/L (45-117) 08/01/19 13:15 Total Protein 6.6 g/dl (6.4-8.2) 08/01/19 13:15 Albumin 3.8 g/dl (3.4-5.0) 08/01/19 13:15 Urine Color Yellow 08/01/19 13:15 Urine Appearance Clear 08/01/19 13:15 Urine pH 6.5 (5.0-8.0) 08/01/19 13:15 Ur Specific [place] 1.017 (1.010-1.035) 08/01/19 13:15 Urine Protein Negative (NEGATIVE) 08/01/19 13:15 Urine Glucose (UA) 3+ (NEGATIVE) H 08/01/19 13:15 Urine Ketones Negative (NEGATIVE) 08/01/19 13:15 Urine Blood Negative (NEGATIVE) 08/01/19 13:15 Urine Nitrite Negative (NEGATIVE) 08/01/19 13:15 Urine Bilirubin Negative (NEGATIVE) 08/01/19 13:15 Urine Urobilinogen 0.2 mg/dL (0.2-1.0) 08/01/19 13:15 Ur Leukocyte Esterase Negative (NEGATIVE) 08/01/19 13:15 Stool Occult Blood Trace (NEGATIVE) 08/01/19 13:15 ASSESSMENT/PLAN: 59 YO F PMH of HTN, DM, GERD, diverticulosis, constipation, Arthritis, hyperthyroid, dysphagia, fibromyalgia presents to ED for hematochezia. pt is admitted for workup for GI bleed Hematochezia r/o diverticular bleed, AVM, ischemic colitis - CBC q 6h - pantoprazole 40 IV once - NPO - GI consulted, Dr. Perales - rectal exam performed by Dr. Bueno in ED notes no hemorrhoids or fissures, blood on tip of glove - continue to monitor H/H and vitals. pt currently hemodynamically stable HTN - hold antihypertensives in setting of acute bleed DM - Insulin sliding scale, BGM ACHS Hyperthyroid - will measure TSH DVT ppx: SCDs, avoid chemical ppx in setting of bleed Dispo: admit to medicine ATTENDING PHYSICIAN STATEMENT I saw and evaluated the patient. I reviewed the resident's note and discussed the case with the resident. I agree with the resident's findings and plan as documented. SUBJECTIVE: OBJECTIVE: ASSESSMENT AND PLAN:
[2019-08-01] MEDS ORDERED: PANTOPRAZOLE SODIUM 40 MG/100 ML BAG IVPB ONE (23:44)
[2019-08-02] MEDS: INSULIN SLIDING SCALE (NOVOLOG) 1 VIAL SQ SCH ×5 (00:15→21:44)
[2019-08-02 00:41] LABS: HEMATOCRIT 26.3 % (32.4-45.2); HEMOGLOBIN 8.2 GM/dL (10.7-15.3); MCH 20.2 pg (25.7-33.7); MCHC 31.4 g/dl (32.0-36.0); MEAN CELL VOLUME 64.3 fl (80-96); MEAN PLT VOLUME 9.1 fl (7.5-11.1); PLATELET COUNT 290 K/MM3 (134-434); RBC 4.09 M/mm3 (3.60-5.2); RDW 20.8 % (11.6-15.6); WHITE BLOOD COUNT 5.1 K/mm3 (4.0-10.0)
--- NOTE | 2019-08-02 03:52 | PN ---
Teaching Attending Note Name of Resident: Yvette Roy ATTENDING PHYSICIAN STATEMENT I saw and evaluated the patient. I reviewed the resident's note and discussed the case with the resident. I agree with the resident's findings and plan as documented. SUBJECTIVE: 50-year-old woman with a history of chronic dizziness, hypertension, diabetes, chronic constipation, GERD, fibromyalgia presents for bright red blood per rectum which occurred when she was using the restroom on 07/30/2019 in the afternoon. Patient had painful BM with streaks of blood. She had a colonoscopy 3 years ago and at that time there were polyps since then has not followed up with GI. Denies any excessive NSAID or alcohol use. CT of abdomen showed no evidence of diverticulitis or other acute intra-abdominal process. There was some diverticulosis. Gallbladder was unremarkable without a calculus or gallbladder wall thickening. Small hiatal hernia was noted. OBJECTIVE: Last Vital Signs Temp Pulse Resp BP Pulse Ox 97.4 F L 77 20 138/84 97 08/01/19 23:06 08/02/19 02:50 08/02/19 02:50 08/02/19 02:50 08/02/19 02:50 On physical exam patient appeared comfortable, not in any acute distress. Head exam was unremarkable, moist oral mucosa, no sinus tenderness. Neck was supple , normal heart sounds S1, S2 regular rate and rhythm. Lungs are clear to auscultation bilaterally. Abdomen was soft, nontender, no epigastric tenderness on palpation. Lower extremities without any edema. ER resident rectal examnormal rectal tone, heme positive stool, no hemorrhoids internal or external. Abnormal Lab Results 08/01/19 08/01/19 08/01/19 13:15 13:15 13:15 Hgb 9.0 L Hct 29.4 L MCV 64.2 L MCH 19.7 L MCHC 30.6 L RDW 21.1 H Lymphocytes % 41.5 H Chloride 110 H Anion Gap 4 L BUN 4.6 L Creatinine 0.5 L Random Glucose 114 H Urine Glucose (UA) 3+ H 08/01/19 08/02/19 16:35 00:05 Hgb 8.2 L 8.2 L Hct 26.9 L 26.3 L MCV 64.8 L 64.3 L MCH 19.8 L 20.2 L MCHC 30.6 L 31.4 L RDW 21.4 H 20.8 H Lymphocytes % Chloride Anion Gap BUN Creatinine Random Glucose Urine Glucose (UA) Imaging studies reviewedabdominal and pelvic CAT scan as described above. ASSESSMENT AND PLAN: 59-year-old woman with bright red blood per rectumsuspect lower GI bleeding. History of polyps suggest possible polyp related bleeding. Patient is stable hemodynamically for admission to floor. Will monitor CBC closely. Noted to have severe microcytic anemia suggestive of GI bleeding. Admit to [facility] Monitor CBC every 6 hours Monitor vital signs closely avoid heparin or antiplatelet agents GI consultation Keep n.p.o. Protonix 40 mg IV twice daily #Diabetes mellitus NovoLog sliding scale IV fluid hydration Check A1c #DVT prophylaxisSCDs
[2019-08-02] MEDS: MORPHINE SULFATE 2 MG/ML VIAL IVPUSH PRN ×3 (04:11→18:16)
[2019-08-02 04:59] VITALS: BMI 29.8
[2019-08-02] MEDS: POTASSIUM CHLORIDE 10 MEQ in SODIUM CHLORIDE 1,000 ML IVPB SCH ×2 (06:55→19:22)
[2019-08-02] MEDS: ALBUTEROL SO4 2.5/IPRATROPIUM 0.5 INH SOL 3 ML VIAL.NEB. NEB SCH ×4 (07:25→20:26)
[2019-08-02 07:54] LABS: EOS % 3.7 % (0-4.5); HEMATOCRIT 27.1 % (32.4-45.2); HEMOGLOBIN 8.4 GM/dL (10.7-15.3); LYMPH % 43.2 % (8-40); MEAN CELL VOLUME 63.5 fl (80-96); NEUT % 46.1 % (42.8-82.8); PLATELET COUNT 305 K/MM3 (134-434); RBC 4.26 M/mm3 (3.60-5.2); WHITE BLOOD COUNT 4.6 K/mm3 (4.0-10.0)
[2019-08-02 08:06] LABS: MCH 19.7 pg (25.7-33.7)
[2019-08-02 08:23] LABS: ALBUMIN 3.4 g/dl (3.4-5.0); BILIRUBIN,TOTAL 0.4 mg/dL (0.2-1); BLOOD UREA NITROGEN 4.1 mg/dL (7-18); CALCIUM 9.2 mg/dL (8.5-10.1); CREATININE 0.5 mg/dL (0.55-1.3); PHOSPHOROUS 4.3 mg/dL (2.5-4.9); POTASSIUM 3.8 mmol/L (3.5-5.1); TOT PROT 5.9 g/dl (6.4-8.2)
[2019-08-02 08:39] LABS: PROTHROMBIN TIME (PATIENT) 11.8 SEC (9.7-13.0)
[2019-08-02] MEDS: PANTOPRAZOLE SODIUM 40 MG VIAL IVPUSH SCH ×2 (09:45→21:38)
--- NOTE | 2019-08-02 10:08 | PN ---
Progress Note, Physician Chief Complaint: Rectal Bleeding Anemia History of Present Illness: Previous notes and events reviewed awake and alert NAD denies further episodes of rectal bleeding or melena c/o lower abdominal pain Hg 8.4 denies chest pain or palpitations - Current Medication List Current Medications: Active Medications Albuterol/Ipratropium (Duoneb -) 1 amp NEB RQID [facility] Last Admin: 08/02/19 07:25 Dose: Not Given Atorvastatin Calcium (Lipitor -) 20 mg PO HS [facility] Potassium Chloride 10 meq/ (Sodium Chloride) 1,005 mls @ 83 mls/hr IVPB ASDIR [facility] Last Admin: 08/02/19 06:55 Dose: 83 mls/hr Insulin Aspart (Novolog Vial Sliding Scale -) 1 vial SQ ACHS [facility]; Protocol Last Admin: 08/02/19 06:55 Dose: Not Given Morphine Sulfate (Morphine Sulfate) 2 mg IVPUSH Q6H PRN PRN Reason: PAIN LEVEL 7 - 10 Last Admin: 08/02/19 04:11 Dose: 2 mg Pantoprazole Sodium (Protonix Iv) 40 mg IVPUSH BID [facility] Last Admin: 08/02/19 09:45 Dose: 40 mg - Objective Vital Signs: Vital Signs Temperature 97.9 F 08/02/19 09:54 Pulse Rate 75 08/02/19 09:54 Respiratory Rate 20 08/02/19 09:54 Blood Pressure 132/76 08/02/19 09:54 O2 Sat by Pulse Oximetry (%) 97 08/02/19 04:28 Constitutional: Yes: No Distress, Calm Eyes: Yes: Conjunctiva Clear HENT: Yes: Atraumatic Cardiovascular: Yes: Regular Rate and Rhythm Respiratory: Yes: Regular, CTA Bilaterally Gastrointestinal: Yes: Normal Bowel Sounds, Soft, Tenderness (lower abdomen) Musculoskeletal: Yes: WNL Extremities: Yes: WNL Edema: No Neurological: Yes: Alert, Oriented Psychiatric: Yes: Alert, Oriented Labs: CBC, BMP 08/02/19 06:50 08/02/19 06:50 INR, PTT INR 1.00 (0.83-1.09) 08/02/19 06:50 Problem List - Problems (1) Anemia Assessment/Plan: Hg 8.4 monitor Hg daily transfuse for Hg <8.0 Anemia Profile Stool OB trace positive GI consult Code(s): D64.9 - ANEMIA, UNSPECIFIED Qualifiers: Anemia type: iron deficiency (2) GERD (gastroesophageal reflux disease) Assessment/Plan: Pantoprazole BID Code(s): K21.9 - GASTRO-ESOPHAGEAL REFLUX DISEASE WITHOUT ESOPHAGITIS Qualifiers: Esophagitis presence: without esophagitis Qualified Code(s): K21.9 - Gastro -esophageal reflux disease without esophagitis (3) Hyperlipidemia Assessment/Plan: Atorvastatin Code(s): E78.5 - HYPERLIPIDEMIA, UNSPECIFIED Qualifiers: Hyperlipidemia type: unspecified Qualified Code(s): E78.5 - Hyperlipidemia , unspecified (4) Hypertension Assessment/Plan: monitor BP meds on hold due GI bleed, will restart if noted with SBP >160 and/or DBP >80 Code(s): I10 - ESSENTIAL (PRIMARY) HYPERTENSION Qualifiers: Hypertension type: essential hypertension Qualified Code(s): I10 - Essential (primary) hypertension (5) Hyperthyroidism Assessment/Plan: TSH 0.48 Code(s): E05.90 - THYROTOXICOSIS, UNSP WITHOUT THYROTOXIC CRISIS OR STORM (6) Type 2 diabetes mellitus Assessment/Plan: BGM ACHS ISS oral medication on hold at present give active rectal bleeding yesterday Code(s): E11.9 - TYPE 2 DIABETES MELLITUS WITHOUT COMPLICATIONS Qualifiers: Diabetes mellitus complication status: without complication Qualified Code( s): E11.9 - Type 2 diabetes mellitus without complications (7) Rectal bleed Assessment/Plan: Hg 8.4 monitor Hg daily transfuse for Hg <8.0 Stool OB trace positive GI consult NPO IV hydration Pantoprazole BID Code(s): K62.5 - HEMORRHAGE OF ANUS AND RECTUM Assessment/Plan see problem list
--- NOTE | 2019-08-02 11:47 | CON.GI ---
Consult Consult Specialty:: GI Referred by:: Jennifer Tyson NP Reason for Consultation:: iron deficiency anemia - History of Present Illness Chief Complaint: 59 y.o. woman reports she has been anemic on and off. States her last workup was at [facility] with Dr Karis Delgadillo "3 or 4 years ago." States she had a bone marrow aspiration with Dr. Brandin Nieto and was told she needs to take iron. She came to ER because she noted flecks of blood after passing a constipated stool. Labs over the past few years show a progressive microcytosis and anemia. She also reports a weight loss of about 50 lbs in the past two years. - History Source History Provided By: Patient, Medical Record Limitations to Obtaining History: No Limitations - Past Medical History Cardio/Vascular: Yes: CAD (non-obstructive), HTN, Hyperlipdemia, Other ( arrhythmia) Pulmonary: Yes: Pulmonary Embolus Gastrointestinal: Yes: GERD ...LMP: 02/08/11 Heme/Onc: Yes: Anemia Psych: Yes: Anxiety, Depression, Panic Musculoskeletal: Yes: Other (fibromyalgia) Endocrine: Yes: Diabetes Mellitus - Past Surgical History Past Surgical History: Yes: Hysterectomy, Joint Replacement (bilateral knees) - Alcohol/Substance Use Hx Alcohol Use: No History of Substance Use: reports: None - Smoking History Smoking history: Never smoked Have you smoked in the past 12 months: No Aproximately how many cigarettes per day: 0 - Social History ADL: Independent History of Recent Travel: No Home Medications - Allergies Allergies/Adverse Reactions: Allergies Allergy/AdvReac Type Severity Reaction Status Date / Time levofloxacin [From Levaquin] Allergy Unknown Verified 08/01/19 11:34 seasonal Allergy Uncoded 08/01/19 11:34 - Home Medications Home Medications: Ambulatory Orders Cholecalciferol (Vitamin D3) [Vitamin D3] 50,000 unit PO SA 06/15/15 Cyclobenzaprine HCl [Amrix] 10 mg PO DAILY 06/15/15 Mirabegron [Myrbetriq] 50 mg PO DAILY 06/15/15 Oxycodone HCl [Oxycontin] 30 mg PO BID 06/15/15 Cetirizine HCl [Zyrtec -] 10 mg PO DAILY 09/26/17 Dapagliflozin Propanediol [Farxiga] 5 mg PO DAILY 09/26/17 Losartan Potassium [Cozaar -] 25 mg PO DAILY 09/26/17 Omeprazole 40 mg PO BID 09/26/17 metFORMIN HCL [Glucophage -] 1,000 mg PO HS 09/26/17 Nitroglycerin 0.4 mg SL ASDIR 03/15/18 Atorvastatin Ca [Lipitor] 20 mg PO HS tablet 04/12/19 Insulin Sliding Scale [Novolog Vial Sliding Scale -] 1 vial SQ ACHS units 04/12 Metoprolol Succinate [Toprol XL -] 25 mg PO DAILY tab.sr.24h 04/12/19 Lorazepam [Ativan] 1 mg PO HS 08/01/19 Metformin HCl [Glucophage] 500 mg PO DAILY 08/01/19 Vilazodone Hydrochloride [Viibryd] 20 mg PO DAILY 08/01/19 Physical Exam-GI Vital Signs: Vital Signs Temperature 97.9 F 08/02/19 09:54 Pulse Rate 75 08/02/19 09:54 Respiratory Rate 20 08/02/19 09:54 Blood Pressure 132/76 08/02/19 09:54 O2 Sat by Pulse Oximetry (%) 97 08/02/19 04:28 ...Rectal Exam: Yes: Other (Anal inspection: no fistulas or fissures seen, small amount brown stool, no blood.) Labs: CBC, BMP 08/02/19 06:50 08/02/19 06:50 INR, PTT INR 1.00 (0.83-1.09) 08/02/19 06:50 Imaging - Results Cat Scan: Report Reviewed, Image Reviewed (I question whether there is a mass in the right colon just above the cecum. This was not reported by the radiologist.) Problem List - Problems (1) Anemia Code(s): D64.9 - ANEMIA, UNSPECIFIED Qualifiers: Anemia type: iron deficiency Assessment/Plan I strongly suspect a right colon cancer. Gastric cancer is also a possibility. I have recommended EGD and colonoscopy; pt consents to both procedures. To prep for tomorrow. I informed them that I do not know who will be doing the procedures tomorrow.
[2019-08-02] MEDS ORDERED: PEG 3350/NA SULF BICARB CL/KCL 4000 ML SOLN.RECON PO ONE (11:51)
--- NOTE | 2019-08-02 14:42 | PN ---
Progress Note (short form) - Note Progress Note: RN reports that patient refuses to drink Golytely. Will try Miralax flavored with Gatorade. Problem List - Problems (1) Anemia Code(s): D64.9 - ANEMIA, UNSPECIFIED Qualifiers: Anemia type: iron deficiency
[2019-08-02] MEDS ORDERED: POLYETHYLENE GLYCOL 3350 255 GM BTL PO ONE (15:00)
[2019-08-02] MEDS ORDERED: PREGABALIN 75 MG CAPSULE PO ONE (16:45)
[2019-08-02] MEDS ORDERED: ATORVASTATIN CA 20 MG TABLET (FP) PO SCH (22:00)
[2019-08-03] MEDS: MORPHINE SULFATE 2 MG/ML VIAL IVPUSH PRN ×3 (02:44→18:31)
[2019-08-03] MEDS ORDERED: SODIUM PHOSPHATE/NA BIPHOS 133 ML ENEMA PR ONE (05:02)
[2019-08-03] MEDS: POTASSIUM CHLORIDE 10 MEQ in SODIUM CHLORIDE 1,000 ML IVPB SCH ×2 (06:29→09:30)
[2019-08-03] MEDS: INSULIN SLIDING SCALE (NOVOLOG) 1 VIAL SQ SCH ×3 (06:30→17:25)
[2019-08-03] MEDS: ALBUTEROL SO4 2.5/IPRATROPIUM 0.5 INH SOL 3 ML VIAL.NEB. NEB SCH ×3 (07:30→15:50)
[2019-08-03 08:21] LABS: HEMATOCRIT 30.1 % (32.4-45.2); HEMOGLOBIN 9.3 GM/dL (10.7-15.3); MCHC 30.8 g/dl (32.0-36.0); MEAN CELL VOLUME 64.5 fl (80-96); MEAN PLT VOLUME 8.7 fl (7.5-11.1); PLATELET COUNT 357 K/MM3 (134-434); RBC 4.66 M/mm3 (3.60-5.2); RDW 21.3 % (11.6-15.6); WHITE BLOOD COUNT 4.7 K/mm3 (4.0-10.0)
[2019-08-03 08:29] LABS: MCH 19.8 pg (25.7-33.7)
[2019-08-03 08:57] LABS: BILIRUBIN,TOTAL 0.5 mg/dL (0.2-1); CALCIUM 9.5 mg/dL (8.5-10.1); CREATININE 0.5 mg/dL (0.55-1.3); POTASSIUM 4.2 mmol/L (3.5-5.1); TOT PROT 6.6 g/dl (6.4-8.2)
[2019-08-03] MEDS: PANTOPRAZOLE SODIUM 40 MG VIAL IVPUSH SCH (09:29)
--- NOTE | 2019-08-03 15:16 | PN ---
Progress Note, Physician Chief Complaint: rectal bleeding History of Present Illness: 59 year old female with PMH DM, diverticulitis, constipation, arthritis, hypothyroidism, dysphagia, fibromyalgia presents to the ED with GIB. - Current Medication List Current Medications: Active Medications Albuterol/Ipratropium (Duoneb -) 1 amp NEB RQID [facility] Last Admin: 08/03/19 12:02 Dose: Not Given Atorvastatin Calcium (Lipitor -) 20 mg PO HS [facility] Last Admin: 08/02/19 21:39 Dose: 20 mg Potassium Chloride 10 meq/ (Sodium Chloride) 1,005 mls @ 83 mls/hr IVPB ASDIR [facility] Last Admin: 08/03/19 09:30 Dose: 83 mls/hr Insulin Aspart (Novolog Vial Sliding Scale -) 1 vial SQ ACHS [facility]; Protocol Last Admin: 08/03/19 10:44 Dose: Not Given Morphine Sulfate (Morphine Sulfate) 2 mg IVPUSH Q6H PRN PRN Reason: PAIN LEVEL 7 - 10 Last Admin: 08/03/19 08:02 Dose: 2 mg Pantoprazole Sodium (Protonix Iv) 40 mg IVPUSH BID [facility] Last Admin: 08/03/19 09:29 Dose: 40 mg - Objective Vital Signs: Vital Signs Temperature 98.0 F 08/03/19 14:07 Pulse Rate 90 08/03/19 14:07 Respiratory Rate 18 08/03/19 14:07 Blood Pressure 142/94 08/03/19 14:07 O2 Sat by Pulse Oximetry (%) 100 08/03/19 09:00 Constitutional: Yes: No Distress HENT: Yes: Atraumatic, Normocephalic Neck: Yes: Supple Cardiovascular: Yes: Regular Rate and Rhythm Respiratory: Yes: Regular, CTA Bilaterally Gastrointestinal: Yes: Normal Bowel Sounds Genitourinary: Yes: WNL Musculoskeletal: Yes: WNL Extremities: Yes: WNL Neurological: Yes: Alert, Oriented Labs: CBC, BMP 08/03/19 07:36 08/03/19 07:36 INR, PTT INR 1.00 (0.83-1.09) 08/02/19 06:50 Problem List - Problems (1) Rectal bleed Assessment/Plan: GI Following for egd/colonoscopy today 9.3/30.1 PPI Code(s): K62.5 - HEMORRHAGE OF ANUS AND RECTUM (2) Anemia Assessment/Plan: r/t gi bleed check iron profile ppi monitor cbc Code(s): D64.9 - ANEMIA, UNSPECIFIED Qualifiers: Anemia type: iron deficiency (3) Chronic constipation Code(s): K59.09 - OTHER CONSTIPATION (4) GERD (gastroesophageal reflux disease) Assessment/Plan: ppi bid Code(s): K21.9 - GASTRO-ESOPHAGEAL REFLUX DISEASE WITHOUT ESOPHAGITIS Qualifiers: Esophagitis presence: without esophagitis Qualified Code(s): K21.9 - Gastro -esophageal reflux disease without esophagitis (5) Hypertension Assessment/Plan: will restart home losartan, metoprolol when hemodynamically stable Code(s): I10 - ESSENTIAL (PRIMARY) HYPERTENSION Qualifiers: Hypertension type: essential hypertension Qualified Code(s): I10 - Essential (primary) hypertension (6) Type 2 diabetes mellitus Assessment/Plan: monitor sugars will restart home meds when stable sliding scale Code(s): E11.9 - TYPE 2 DIABETES MELLITUS WITHOUT COMPLICATIONS Qualifiers: Diabetes mellitus complication status: without complication Qualified Code( s): E11.9 - Type 2 diabetes mellitus without complications
[2019-08-03 17:30] VITALS: BP 144/94; PULSE 84; TEMP 98.2
--- NOTE | 2019-08-03 18:42 | DS ---
Physical Examination Vital Signs: Vital Signs Temperature 98.2 F 08/03/19 17:26 Pulse Rate 84 08/03/19 17:26 Respiratory Rate 18 08/03/19 17:26 Blood Pressure 144/94 08/03/19 17:26 O2 Sat by Pulse Oximetry (%) 98 08/03/19 17:26 Constitutional: Yes: Well Nourished, No Distress HENT: Yes: Atraumatic, Normocephalic Neck: Yes: Supple Cardiovascular: Yes: Regular Rate and Rhythm Respiratory: Yes: Regular, CTA Bilaterally Gastrointestinal: Yes: Normal Bowel Sounds Neurological: Yes: Alert, Oriented Labs: CBC, BMP 08/03/19 07:36 08/03/19 07:36 Discharge Summary Problems reviewed: Yes Reason For Visit: ANEMIA,LOWER GASTROINTESTINAL HEMORRHAGE Current Active Problems Rectal bleed (Acute) Hospital Course: PATIENT WAS SEEN AND EVALUATED BY GI, UNDERWENT EGD/COLONOSCOPY, H & H STABLE. SHE HAD PROTONIX IVP, IVF, BOWEL REST. SHE IS STABLE FOR DC HOME WITH F/U PCP AND GI FOR EGD/COLONOSCOPY RESULTS. Condition: Improved - Instructions Referrals: Desiree Roy MD [Primary Care Provider] - Jordan Perales MD [Staff Physician] - Disposition: HOME - Home Medications Comprehensive Discharge Medication List: Ambulatory Orders Cholecalciferol (Vitamin D3) [Vitamin D3] 50,000 unit PO SA 06/15/15 Cyclobenzaprine HCl [Amrix] 10 mg PO DAILY 06/15/15 Mirabegron [Myrbetriq] 50 mg PO DAILY 06/15/15 Oxycodone HCl [Oxycontin] 30 mg PO BID 06/15/15 Cetirizine HCl [Zyrtec -] 10 mg PO DAILY 09/26/17 Dapagliflozin Propanediol [Farxiga] 5 mg PO DAILY 09/26/17 Losartan Potassium [Cozaar -] 25 mg PO DAILY 09/26/17 metFORMIN HCL [Glucophage -] 1,000 mg PO HS 09/26/17 Nitroglycerin 0.4 mg SL ASDIR 03/15/18 Atorvastatin Ca [Lipitor] 20 mg PO HS tablet 04/12/19 Insulin Sliding Scale [Novolog Vial Sliding Scale -] 1 vial SQ ACHS units 04/12 Metoprolol Succinate [Toprol XL -] 25 mg PO DAILY tab.sr.24h 04/12/19 Lorazepam [Ativan] 1 mg PO HS 08/01/19 Metformin HCl [Glucophage] 500 mg PO DAILY 08/01/19 Vilazodone Hydrochloride [Viibryd -] 20 mg PO DAILY 08/01/19 Pregabalin [Lyrica -] 225 mg PO BID 08/02/19 Albuterol 2.5/Ipratropium 0.5 [Duoneb -] 1 amp NEB RQID amp 08/03/19 Atorvastatin Ca [Lipitor] 20 mg PO HS tablet 08/03/19 Pantoprazole Sodium [Protonix] 40 mg PO BID #60 tablet.dr 08/03/19
--- NOTE | 2019-08-05 16:47 | PATH ---
Surgical Pathology Report Patient Name: CHANEL GARCIA Med. Rec. #: [id number] /Age/Gender: 1960 (Age: 59) / F Account: [id number] Location: [facility] MED/SURG Taken: 08/03/2019 Received: 08/04/2019 Reported: 08/05/2019 Physicians: MD Desiree Werner M.D. Specimen(s) Received A: DUODENUM B: STOMACH Clinical History Iron deficiency anemia Postoperative diagnosis: Normal EGD, diverticulosis Final Diagnosis A. DUODENUM, BIOPSY: DUODENAL MUCOSA WITHOUT SIGNIFICANT PATHOLOGIC FINDINGS. B. STOMACH, BIOPSY: GASTRIC BODY MUCOSA WITH MILD CHRONIC GASTRITIS AND RARE DILATED GLANDS. IMMUNOHISTOCHEMICAL STAIN FOR H. PYLORI IS NEGATIVE. Positive and negative controls (internal if applicable) show appropriate results. Electronically Signed Shalini Blanca M.D. Gross Description A. Received in formalin, labeled "duodenum biopsy" are 6 [place], irregular portions of soft tissue ranging from 0.2-0.4 cm. in greatest dimension. The specimens are submitted in toto in one cassette. B. Received in formalin, labeled "stomach biopsy" are 2 [place], irregular portions of soft tissue measuring 0.4 and 0.5 cm. in greatest dimension. The specimens are submitted in toto in one cassette. 08/04/2019 saudi08/04/2019
== END 2019-08-03 19:00 | disposition home or self-care (01) | DRG 379 ==
LOC: JER 11:25 → JERBED 19:47 → J7W 08-02 03:20
PROVIDERS: ADMIT Internal Medicine; ATTEND Family Medicine
PROC: 0DJD8ZZ Inspection of Lower Intestinal Tract, Via Natural or Artificial Opening Endoscopic (ICD-10-PCS; 2019-08-03)
PROC: 0DD78ZX Extraction of Stomach, Pylorus, Via Natural or Artificial Opening Endoscopic, Diagnostic (ICD-10-PCS; 2019-08-03)
PROC: 0DJ08ZZ Inspection of Upper Intestinal Tract, Via Natural or Artificial Opening Endoscopic (ICD-10-PCS; principal; 2019-08-03 12:00)
DX: K62.5 Hemorrhage of anus and rectum (principal); E11.9 Type 2 diabetes mellitus without complications; I10 Essential (primary) hypertension; K21.9 Gastro-esophageal reflux disease without esophagitis; E05.90 Thyrotoxicosis, unspecified without thyrotoxic crisis or storm; K59.09 Other constipation; D50.0 Iron deficiency anemia secondary to blood loss (chronic); E78.5 Hyperlipidemia, unspecified; M79.7 Fibromyalgia; K76.0 Fatty (change of) liver, not elsewhere classified; Z96.653 Presence of artificial knee joint, bilateral; K57.90 Diverticulosis of intestine, part unspecified, without perforation or abscess without bleeding; R13.10 Dysphagia, unspecified; I25.10 Atherosclerotic heart disease of native coronary artery without angina pectoris; Z86.711 Personal history of pulmonary embolism; F41.8 Other specified anxiety disorders
CPT/HCPCS: 36415; 74176-TC; 80053; 81003; 82272; 82962; 83036; 83735; 84100; 84443; 85025; 85027; 85610; 85730; 86850; 86900; 86901; 87077; 87086; 88305-TC; 99285-25; J0131; J7030